=== PATIENT | female | born 1960 ===

== ENCOUNTER 2019-09-09 14:53 | Inpatient (IN) ==
[2019-09-09] MEDS ORDERED: PIPERACILL/TAZOBAC CONSULT ACTIVE PRN ×3 (15:08→21:03)
[2019-09-09] MEDS ORDERED: PIPERACILLIN/TAZOBACTAM 4.5 GM/120 ML BAG IV ONE (15:08)
[2019-09-09 15:11] LABS: Hematocrit (blood only) 48.1 % (37-47); Hemoglobin 15.9 g/dL (12.0-16.0); Mean Corpuscular Hemoglobin 29.5 pg (25-34); Mean Corpuscular Hgb Conc 33.1 g/dL (32-36); Mean Corpuscular Volume 89.2 fL (80-100); Mean Platelet Volume 11.2 fL (7.4-10.4); Platelet Count 322 K/uL (130-400); RDW Coefficient of Variation 15.7 % (11.5-14.5); RDW Standard Deviation 51.3 fL (36.4-46.3); Red Blood Count 5.39 M/uL (4.2-5.4); White Blood Count 6.34 K/uL (4.8-10.8)
[2019-09-09] MEDS ORDERED: SODIUM CHLORIDE 0.9% 1000ML 2,000 ML IV SCH (15:15)
--- NOTE | 2019-09-09 15:25 | XRay Report ---
SINGLE VIEW CHEST CLINICAL HISTORY: Atypical chest pain. FINDINGS: An AP, portable, upright chest radiograph is obtained. No prior studies are available for c omparison at the time of dictation. The cardiomediastinal silhouette is unremarkable. There are low lung volumes with bibasilar atelectasis. No airspace consolidation or large pleural effusion is ident ified. No pneumothorax is seen. The skeletal structures are osteopenic. The bony thorax is grossly in tact. Cholecystectomy clips are seen in the right upper quadrant. IMPRESSION: No active disease in the chest. ACT 112: Negative or not required by law. Electronically signed by: Rene Fernandez M.D. 09/09/2019 3:23 PM
[2019-09-09 15:27] LABS: Alanine Aminotransferase 41 U/L (12-78); Aspartate Aminotransferase 62 U/L (15-37); BUN Creatinine Ratio 10.2 (10-20); Blood Urea Nitrogen 32 mg/dl (7-18); Calcium 10.4 mg/dl (8.5-10.1); Carbon Dioxide 17 mmol/L (21-32); Chloride 108 mmol/L (98-107); Creatinine Clr Calc Pharmacy 22.2 ml/min; Est GFR (African American) 18.3; Est GFR (Non-African American) 15.8; Glucose 98 mg/dl (70-99); Lipase 68 U/L (73-393); Potassium 4.2 mmol/L (3.5-5.1); Sodium 142 mmol/L (136-145)
[2019-09-09] MEDS ORDERED: OPTIRAY 320 125ml IV PRN (15:30)
[2019-09-09 15:32] LABS: Albumin Globulin Ratio 0.8 (0.9-2); Alkaline Phosphatase 89 U/L (45-117); Bilirubin,Total 0.7 mg/dl (0.2-1); Creatine Kinase 608 U/L (26-192); Creatine Kinase MB 24.5 ng/ml (0.5-3.6); Globulin 3.8 gm/dl (2.5-4.0); Total Protein 6.8 gm/dl (6.4-8.2); Troponin I < 0.015 ng/ml (0-0.045)
[2019-09-09 15:34] LABS: INR 1.3 (0.9-1.1); Partial Thromboplastin Ratio 1.1; Partial Thromboplastin Time 29.1 Seconds (21.0-31.0)
[2019-09-09 15:37] LABS: D Dimer 10070 ug/L FEU (0-500)
--- NOTE | 2019-09-09 15:40 | Emergency Department Note ---
Entered by Neisha Saldaña acting as a scribe for Puneet David DO History of Present Illness General Chief complaint: Respiratory Problems Source: patient Mode of arrival: EMS History of Present Illness Provider complaint: Abdominal Pain Onset (ago): day(s) 2 Location: abdomen Radiation: back Relieved By: + none Exacerbated By: + movement Associated symptoms: + shortness of breath and + other (Slurred speech) The patient is a 59 year old female who presents to the Emergency Room with complaints of abdominal pain that began 2 days ago. The patient states that she is also experiencing pain in her back as well as her abdomen that is exacerbated by movement and not relieved by anything specific. The patient reports experiencing shortness of breath and EMS reports the patient experiencing slurred speech. The patient mentioned that she was diagnosed with Diverticulitis at [facility] yesterday. Home Medications Home Medications Medication Instructions Recorded Confirmed Type atorvastatin [Lipitor] 20 mg PO DAILY 09/09/19 09/09/19 History benazepril 5 mg PO DAILY 09/09/19 09/09/19 History diclofenac sodium [Voltaren] 2 g TOPICAL BID 09/09/19 09/09/19 History sulindac 150 mg PO BID 09/09/19 09/09/19 History Allergies Allergy/AdvReac Type Severity Reaction Status Date / Time Penicillins Allergy Unknown Verified 09/09/19 16:42 Past Med/Surg History Medical History Cardiac arrest Dyslipidemia Hypertension Obesity Perforated diverticulum Sepsis Smoker Surgical History No pertinent past surgical history Family History No pertinent family history in first degree relatives Social History Feels Safe at Home: Yes Smoking Status: Unknown if ever smoked Review of Systems See HPI for pertinent positives & negatives. and A total of 10 systems reviewed and were otherwise negative Physical Exam Vital Signs Vital Signs - 24 hr 09/09/19 15:03 09/09/19 15:05 09/09/19 15:10 Temperature 38 C H Temperature Source Rectal Pulse Rate 109 H 109 H 108 H Pulse Rate [Right Femoral] Pulse Rate from SpO2 Sensor Respiratory Rate 46 H 41 H 42 H Respiratory Effort / Characteristics Labored Respiratory Depth Deep Respiratory Pattern Rapid/Deep Blood Pressure Blood Pressure [Right Radial Artery] Blood Pressure Mean Blood Pressure Mean [Right Radial Artery] Pulse Oximetry 91 Oxygen Delivery Method Non-rebreather Oxygen Flow Rate 15 Fraction of Inspired Oxygen Sepsis Recent Fever Within 48 Hours No Sepsis Action Taken by Nursing No Action Required Arterial BP Systolic Arterial BP Diastolic Arterial BP Mean Arterial Pulse Rate 09/09/19 15:15 09/09/19 15:20 09/09/19 15:43 Temperature Temperature Source Pulse Rate 110 H 109 H 103 H Pulse Rate [Right Femoral] Pulse Rate from SpO2 Sensor 108 H Respiratory Rate 41 H 45 H 34 H Respiratory Effort / Characteristics Respiratory Depth Respiratory Pattern Blood Pressure Blood Pressure [Right Radial Artery] Blood Pressure Mean Blood Pressure Mean [Right Radial Artery] Pulse Oximetry 95 Oxygen Delivery Method Oxygen Flow Rate Fraction of Inspired Oxygen Sepsis Recent Fever Within 48 Hours Sepsis Action Taken by Nursing Arterial BP Systolic Arterial BP Diastolic Arterial BP Mean Arterial Pulse Rate 09/09/19 15:45 09/09/19 15:50 09/09/19 15:55 Temperature Temperature Source Pulse Rate 102 H 101 H 99 H Pulse Rate [Right Femoral] Pulse Rate from SpO2 Sensor Respiratory Rate 43 H 41 H 38 H Respiratory Effort / Characteristics Respiratory Depth Respiratory Pattern Blood Pressure Blood Pressure [Right Radial Artery] Blood Pressure Mean Blood Pressure Mean [Right Radial Artery] Pulse Oximetry Oxygen Delivery Method Oxygen Flow Rate Fraction of Inspired Oxygen Sepsis Recent Fever Within 48 Hours Sepsis Action Taken by Nursing Arterial BP Systolic Arterial BP Diastolic Arterial BP Mean Arterial Pulse Rate 09/09/19 16:00 09/09/19 16:05 09/09/19 16:10 Temperature Temperature Source Pulse Rate 101 H 102 H 101 H Pulse Rate [Right Femoral] Pulse Rate from SpO2 Sensor Respiratory Rate 33 H 36 H 37 H Respiratory Effort / Characteristics Respiratory Depth Respiratory Pattern Blood Pressure Blood Pressure [Right Radial Artery] Blood Pressure Mean Blood Pressure Mean [Right Radial Artery] Pulse Oximetry Oxygen Delivery Method Oxygen Flow Rate Fraction of Inspired Oxygen Sepsis Recent Fever Within 48 Hours Sepsis Action Taken by Nursing Arterial BP Systolic Arterial BP Diastolic Arterial BP Mean Arterial Pulse Rate 09/09/19 16:15 09/09/19 16:20 09/09/19 16:24 Temperature Temperature Source Pulse Rate 101 H 106 H 99 H Pulse Rate [Right Femoral] Pulse Rate from SpO2 Sensor 102 H 97 H 94 H Respiratory Rate 36 H 38 H 31 H Respiratory Effort / Characteristics Respiratory Depth Respiratory Pattern Blood Pressure Blood Pressure [Right Radial Artery] Blood Pressure Mean 71 Blood Pressure Mean [Right Radial Artery] Pulse Oximetry 84 L 98 77 L Oxygen Delivery Method Oxygen Flow Rate Fraction of Inspired Oxygen Sepsis Recent Fever Within 48 Hours Sepsis Action Taken by Nursing Arterial BP Systolic Arterial BP Diastolic Arterial BP Mean Arterial Pulse Rate 09/09/19 16:26 09/09/19 16:30 09/09/19 16:31 Temperature Temperature Source Pulse Rate 101 H 101 H 100 H Pulse Rate [Right Femoral] Pulse Rate from SpO2 Sensor 104 H Respiratory Rate 36 H 32 H 35 H Respiratory Effort / Characteristics Respiratory Depth Respiratory Pattern Blood Pressure 80/33 L Blood Pressure [Right Radial Artery] Blood Pressure Mean 40 Blood Pressure Mean [Right Radial Artery] Pulse Oximetry 89 L Oxygen Delivery Method Oxygen Flow Rate Fraction of Inspired Oxygen Sepsis Recent Fever Within 48 Hours Sepsis Action Taken by Nursing Arterial BP Systolic Arterial BP Diastolic Arterial BP Mean Arterial Pulse Rate 09/09/19 16:40 09/09/19 16:41 09/09/19 16:45 Temperature Temperature Source Pulse Rate 102 H 101 H 104 H Pulse Rate [Right Femoral] Pulse Rate from SpO2 Sensor 89 103 H 89 Respiratory Rate 33 H 35 H 36 H Respiratory Effort / Characteristics Respiratory Depth Respiratory Pattern Blood Pressure Blood Pressure [Right Radial Artery] Blood Pressure Mean 79 Blood Pressure Mean [Right Radial Artery] Pulse Oximetry 74 L 83 L 83 L Oxygen Delivery Method Oxygen Flow Rate Fraction of Inspired Oxygen Sepsis Recent Fever Within 48 Hours Sepsis Action Taken by Nursing Arterial BP Systolic Arterial BP Diastolic Arterial BP Mean Arterial Pulse Rate 09/09/19 16:50 09/09/19 16:52 09/09/19 16:55 Temperature Temperature Source Pulse Rate 105 H 83 55 L Pulse Rate [Right Femoral] Pulse Rate from SpO2 Sensor 105 H 100 H 124 H Respiratory Rate 36 H 15 14 Respiratory Effort / Characteristics Respiratory Depth Respiratory Pattern Blood Pressure Blood Pressure [Right Radial Artery] Blood Pressure Mean 32 Blood Pressure Mean [Right Radial Artery] Pulse Oximetry 88 L 72 L 75 L Oxygen Delivery Method Oxygen Flow Rate Fraction of Inspired Oxygen Sepsis Recent Fever Within 48 Hours Sepsis Action Taken by Nursing Arterial BP Systolic Arterial BP Diastolic Arterial BP Mean Arterial Pulse Rate 09/09/19 17:00 09/09/19 17:02 09/09/19 17:05 Temperature Temperature Source Pulse Rate 135 H 130 H 87 Pulse Rate [Right Femoral] Pulse Rate from SpO2 Sensor 123 H 135 H 128 H Respiratory Rate Respiratory Effort / Characteristics Respiratory Depth Respiratory Pattern Blood Pressure Blood Pressure [Right Radial Artery] Blood Pressure Mean 40 Blood Pressure Mean [Right Radial Artery] Pulse Oximetry 51 L 55 L 81 L Oxygen Delivery Method Oxygen Flow Rate Fraction of Inspired Oxygen Sepsis Recent Fever Within 48 Hours Sepsis Action Taken by Nursing Arterial BP Systolic Arterial BP Diastolic Arterial BP Mean Arterial Pulse Rate 09/09/19 17:10 09/09/19 17:11 09/09/19 17:15 Temperature Temperature Source Pulse Rate 123 H 122 H 121 H Pulse Rate [Right Femoral] Pulse Rate from SpO2 Sensor 117 H 118 H Respiratory Rate 22 24 16 Respiratory Effort / Characteristics Respiratory Depth Respiratory Pattern Blood Pressure 121/73 Blood Pressure [Right Radial Artery] Blood Pressure Mean 78 Blood Pressure Mean [Right Radial Artery] Pulse Oximetry 68 L 65 L Oxygen Delivery Method Oxygen Flow Rate Fraction of Inspired Oxygen Sepsis Recent Fever Within 48 Hours Sepsis Action Taken by Nursing Arterial BP Systolic Arterial BP Diastolic Arterial BP Mean Arterial Pulse Rate 09/09/19 17:19 09/09/19 17:21 09/09/19 17:22 Temperature Temperature Source Pulse Rate 116 H 130 H 116 H Pulse Rate [Right Femoral] Pulse Rate from SpO2 Sensor Respiratory Rate 16 16 16 Respiratory Effort / Characteristics Respiratory Depth Respiratory Pattern Blood Pressure 127/58 L 114/51 L Blood Pressure [Right Radial Artery] Blood Pressure Mean 76 76 Blood Pressure Mean [Right Radial Artery] Pulse Oximetry Oxygen Delivery Method Oxygen Flow Rate Fraction of Inspired Oxygen Sepsis Recent Fever Within 48 Hours Sepsis Action Taken by Nursing Arterial BP Systolic Arterial BP Diastolic Arterial BP Mean Arterial Pulse Rate 09/09/19 17:25 09/09/19 17:30 09/09/19 17:31 Temperature Temperature Source Pulse Rate 123 H 115 H 116 H Pulse Rate [Right Femoral] Pulse Rate from SpO2 Sensor Respiratory Rate 20 27 H 19 Respiratory Effort / Characteristics Respiratory Depth Respiratory Pattern Blood Pressure 107/91 Blood Pressure [Right Radial Artery] Blood Pressure Mean 98 Blood Pressure Mean [Right Radial Artery] Pulse Oximetry Oxygen Delivery Method Oxygen Flow Rate Fraction of Inspired Oxygen Sepsis Recent Fever Within 48 Hours Sepsis Action Taken by Nursing Arterial BP Systolic Arterial BP Diastolic Arterial BP Mean Arterial Pulse Rate 69 133 H 09/09/19 17:32 09/09/19 17:35 09/09/19 17:40 Temperature Temperature Source Pulse Rate 128 H 121 H Pulse Rate [Right Femoral] 127 H Pulse Rate from SpO2 Sensor Respiratory Rate 21 26 H 21 Respiratory Effort / Characteristics Respiratory Depth Respiratory Pattern Blood Pressure 102/69 Blood Pressure [Right Radial Artery] 72/59 L Blood Pressure Mean 80 Blood Pressure Mean [Right Radial Artery] 63 Pulse Oximetry Oxygen Delivery Method Oxygen Flow Rate Fraction of Inspired Oxygen Sepsis Recent Fever Within 48 Hours Sepsis Action Taken by Nursing Arterial BP Systolic 82 76 Arterial BP Diastolic 71 75 Arterial BP Mean 77 75 Arterial Pulse Rate 0 L 0 L 09/09/19 18:00 Temperature Temperature Source Pulse Rate 122 H Pulse Rate [Right Femoral] Pulse Rate from SpO2 Sensor Respiratory Rate 26 H Respiratory Effort / Characteristics Respiratory Depth Respiratory Pattern Blood Pressure Blood Pressure [Right Radial Artery] Blood Pressure Mean Blood Pressure Mean [Right Radial Artery] Pulse Oximetry Oxygen Delivery Method Oxygen Flow Rate Fraction of Inspired Oxygen 100 Sepsis Recent Fever Within 48 Hours Sepsis Action Taken by Nursing Arterial BP Systolic Arterial BP Diastolic Arterial BP Mean Arterial Pulse Rate CONSTITUTIONAL/VITAL SIGNS: Reviewed / noted above. GENERAL: Non-toxic in appearance. INTEGUMENTARY: Mottled. Cool hands and feet with some cyanosis to the toes. HEAD: Normocephalic. EYES: without scleral icterus or trauma. ENT/OROPHARYNX: clear and moist. LYMPHADENOPATHY/NECK: Is supple without lymphadenopathy or meningismus. RESPIRATORY: Tachypneic. CARDIOVASCULAR: Regular rate and rhythm. GI/ABDOMEN: Soft and diffusely tender. No organomegaly or pulsatile mass. No rebound or guarding. Normal bowel sounds. EXTREMITIES: No radial pulses are present. Poor capillary refill. BACK: No CVA tenderness. NEUROLOGICAL: Intact without focal deficits. PSYCHIATRIC: normal affect. MUSCULOSKELETAL: Normally developed with good muscle tone. Procedures Free Text Procedures Left subclavian central line placement: This was placed due to the poor IV access and the necessity to administer IV medications/IV fluids and to obtain blood work. The procedure was done under sterile technique. It was performed under sterile ultrasound guidance. The Seldinger technique was used. The triple lumen catheter was placed without difficulty on the initial attempt. Each port flushed well and gave blood. The triple lumen catheter was sutured in place. A sterile dressing was placed on the catheter site. The patient tolerated the procedure well. No complication. Endotracheal intubation: Reason: Acute respiratory failure RSI was performed using 28mg of IV etomidate and Rocuroneum 60mg. The patient was intubated successfully and without difficulty with a MAC 4 blade. The endotracheal tube was visualized passing through the cords. The patient did not have any hypoxia. There was no hypotension. There was no complication. End- tidal CO2 detection was present. Bilateral breath sounds are present with good tube humidification. No epigastric sounds. It was taped at 23 cm at the lip line. Size 7.0 tube. CPR: After intubation, the patient did become bradycardic and then asystolic. CPR was initiated for about a minute. A milligram of epinephrine IV was given as well as 2 A of bicarb. The patient regained pulses in a short period of time. ABG Interpretation ABG Interpretation 1: ABG Results: ABG reveals a pH of 7.12. PCO2 is 42 and PaO2 was 86. This represents adequate oxygenation with 15 L of oxygen. Adequate ventilation although an uncompensated metabolic acidosis is present likely due to sepsis. Interpretation: abnormal and metabolic acidosis Additional Comments: ABG #2 revealed a pH of 7.12. PCO2 was 54. PO2 was 98. The patient did have her ventilations increased from 16-20 prior to going to the OR. This represents a continued metabolic acidosis with inadequate ventilatory compensation with improved oxygenation after intubation. Course Course 1455: Past medical records reviewed. The patient was evaluated in room A01. A complete history and physical exam was performed. 1508: I ordered Zosyn IV for the patient. 1600: I placed a left subclavian central line. Radiologist called with report of intestinal perforation during the procedure. 1624: Norepinephrine drip was started. 1626: I spoke with Jonel Escobedo PA-C about the patient's case and he will call Dr. Belia Mcqueen who is in the hospital. 1645: Dr. Belia Mcqueen came down and evaluated the patient and decided she needed to be taken to the OR tonight. 1652: I intubated the patient and a NG tube was placed immediately after intubation. 1658: Patient became bradycardic and went into cardiac arrest. CPR was performed for about a minute and pulses were regained. 1705: Norepinephrine was increased. Vasopressins and Dobutamine were administered. Administered Medications Norepinephrine Bitartrate 8 mg (/ Dextrose) 508 mls @ 25.203 mls/hr IV .[id number] [facility]; Protocol Stop: 10/09/19 16:14 Last Titration: 09/09/19 16:44 Dose: 0.07 mcg/kg/min, 25.2 mls/hr Documented by: [id number] Admin: 09/09/19 16:24 Dose: 0.05 mcg/kg/min, 18 mls/hr Documented by: [id number] Cosigned by: [id number] Vasopressin 20 units/ Sodium (Chloride) 101 mls @ 12.12 mls/hr IV .Q8H20M [facility] Stop: 10/09/19 17:14 Last Admin: 09/09/19 17:35 Dose: 0.04 unit/min, 12.1 mls/hr Documented by: [id number] Cosigned by: [id number] Dobutamine HCl/Dextrose (Dobutamine / D5w) 500 mg in 250 mls @ 28.35 mls/hr IV .Q8H50M [facility]; Protocol Stop: 09/10/19 02:04 Last Admin: 09/09/19 17:36 Dose: 10 mcg/kg/min, 28.4 mls/hr Documented by: [id number] Cosigned by: [id number] Fentanyl Citrate (Fentanyl Drip) 1,250 mcg in 250 mls @ 10 mls/hr IV .Q24H [facility]; Protocol Stop: 09/23/19 17:28 Last Admin: 09/09/19 17:35 Dose: 50 mcg/hr, 10 mls/hr Documented by: [id number] Cosigned by: [id number] Ioversol (Optiray 320 125ml) 119 ml IV ONCE PRN PRN Reason: Interaction Checking Stop: 09/13/19 15:29 Last Admin: 09/09/19 15:31 Dose: 119 ml Documented by: [id number] Discontinued Medications Sodium Chloride (Nss 1000ml) 2,000 mls @ 999 mls/hr IV .Q2H1M [facility] Stop: 09/09/19 17:15 Last Admin: 09/09/19 16:11 Dose: 999 mls/hr Documented by: [id number] Piperacillin Sod/Tazobactam Sod (Zosyn) 4.5 gm in 120 mls @ 240 mls/hr IV NOW ONE Stop: 09/09/19 15:37 Last Infusion: 09/09/19 16:47 Dose: 0 mls/hr Documented by: [id number] Admin: 09/09/19 16:11 Dose: 240 mls/hr Documented by: [id number] Critical Care Time Critical Care Time: Yes Total Critical Care Time: 120 I have personally spent 120 minutes of critical care time in the direct management of this patient. This includes bedside care, interpretation of diagnostic studies, and testing, discussion with consultants, patient, and family members, and other required patient management activities. This 120 minutes is in excess of all separately billable procedures. Prolonged Care Time Prolonged Care Time: Yes Medical Decision Making Differential Diagnosis Differential diagnosis: Etiologies such as biliary colic, cholecystitis, hepatitis, perihepatitis, pancreatitis, cardiac disease, pancreatitis, gastritis, peptic ulcer disease, appendicitis, ovarian cyst, ovarian torsion, ectopic , pelvic inflammatory disease, cystitis, diverticulitis, mesenteric ischemia, inflammatory bowel disease, ileus, bowel obstruction, aortic pathology, shingles, as well as others were considered. Medical Records Attestation: I reviewed the patient's medical records. Home Medications Current Medication List: was personally reviewed by me Laboratory Data Attestation: I reviewed the patient's lab results. Result diagrams: 09/09/19 14:31 09/09/19 14:31 Lab Results 09/09/19 09/09/19 09/09/19 Range/Units 14:31 14:31 14:31 WBC 6.34 (4.8-10.8) K/uL RBC 5.39 (4.2-5.4) M/uL Hgb 15.9 (12.0-16.0) g/dL POC Hgb (12.0-16.0) g/dl Hct 48.1 H (37-47) % POC Hct (37-47) % MCV 89.2 (80-100) fL MCH 29.5 (25-34) pg MCHC 33.1 (32-36) g/dL RDW Std Deviation 51.3 H (36.4-46.3) fL RDW Coeff of Allan 15.7 H (11.5-14.5) % Plt Count 322 (130-400) K/uL MPV 11.2 H (7.4-10.4) fL Immature Gran % (Auto) 1.3 % Neut % (Auto) 76.2 % Lymph % (Auto) 18.0 % Gates % (Auto) 4.3 % Eos % (Auto) 0.0 % Baso % (Auto) 0.2 % Immature Gran # (Auto) 0.08 H (0.00-0.02) K/uL Neut # (Auto) 4.84 (1.4-6.5) K/uL Lymph # (Auto) 1.14 L (1.2-3.4) K/uL Gates # (Auto) 0.27 (0.11-0.59) K/uL Eos # (Auto) 0.00 (0-0.5) K/uL Baso # (Auto) 0.01 (0-0.2) K/uL PT 13.0 H (9.0-12.0) Seconds INR 1.3 H (0.9-1.1) APTT 29.1 (21.0-31.0) Seconds PTT Ratio 1.1 Fibrinogen (184-400) mg/dl Fibrin Degrad Products (<10) mcg/ml D-Dimer 41853 H* (0-500) ug/L FEU POC pH (7.35-7.45) POC pCO2 (35-46) mmHg POC pO2 (80-95) mmHg POC HCO3 (19-24) merrick/L POC Total CO2 (24-31) mmol/L POC Base Excess (-9-1.8) merrick/L ABG pH (7.35-7.45) ABG pCO2 (35-46) mmHg ABG pO2 (80-95) mmHg ABG HCO3 (19-24) mmol/L ABG O2 Saturation (90-95) % ABG Base Excess (-9-1.8) mEq/L Alec Test (Pos) Barometric Pressure mm/Hg Oxygen Given POC Sodium (135-144) mmol/L Sodium 142 (136-145) mmol/L POC Potassium (3.3-5.0) mmol/L Potassium 4.2 (3.5-5.1) mmol/L Chloride 108 H (98-107) mmol/L Carbon Dioxide 17 L (21-32) mmol/L Anion Gap 17.0 H (3-11) BUN 32 H (7-18) mg/dl Creatinine 3.12 H (0.6-1.2) mg/dl Est Cr Clr Drug Dosing 22.2 ml/min Est GFR ( Amer) 18.3 Est GFR (Non-Af Amer) 15.8 BUN/Creatinine Ratio 10.2 (10-20) Glucose 98 (70-99) mg/dl Lactate (0.4-2.0) mmol/L Calcium 10.4 H (8.5-10.1) mg/dl Total Bilirubin 0.7 (0.2-1) mg/dl AST 62 H (15-37) U/L ALT 41 (12-78) U/L Alkaline Phosphatase 89 (45-117) U/L Total Creatine Kinase 608 H (26-192) U/L CK-MB (CK-2) 24.5 H (0.5-3.6) ng/ml CK/CKMB % Calc 4.0 H (0-3.0) Troponin I < 0.015 (0-0.045) ng/ml Total Protein 6.8 (6.4-8.2) gm/dl Albumin 3.0 L (3.4-5.0) gm/dl Globulin 3.8 (2.5-4.0) gm/dl Albumin/Globulin Ratio 0.8 L (0.9-2) Lipase 68 L (73-393) U/L Blood Type Antibody Screen 09/09/19 09/09/19 09/09/19 Range/Units 15:49 15:49 16:19 WBC (4.8-10.8) K/uL RBC (4.2-5.4) M/uL Hgb (12.0-16.0) g/dL POC Hgb (12.0-16.0) g/dl Hct (37-47) % POC Hct (37-47) % MCV (80-100) fL MCH (25-34) pg MCHC (32-36) g/dL RDW Std Deviation (36.4-46.3) fL RDW Coeff of Allan (11.5-14.5) % Plt Count (130-400) K/uL MPV (7.4-10.4) fL Immature Gran % (Auto) % Neut % (Auto) % Lymph % (Auto) % Gates % (Auto) % Eos % (Auto) % Baso % (Auto) % Immature Gran # (Auto) (0.00-0.02) K/uL Neut # (Auto) (1.4-6.5) K/uL Lymph # (Auto) (1.2-3.4) K/uL Gates # (Auto) (0.11-0.59) K/uL Eos # (Auto) (0-0.5) K/uL Baso # (Auto) (0-0.2) K/uL PT (9.0-12.0) Seconds INR (0.9-1.1) APTT (21.0-31.0) Seconds PTT Ratio Fibrinogen (184-400) mg/dl Fibrin Degrad Products (<10) mcg/ml D-Dimer (0-500) ug/L FEU POC pH (7.35-7.45) POC pCO2 (35-46) mmHg POC pO2 (80-95) mmHg POC HCO3 (19-24) merrick/L POC Total CO2 (24-31) mmol/L POC Base Excess (-9-1.8) merrick/L ABG pH 7.12 L* (7.35-7.45) ABG pCO2 42 (35-46) mmHg ABG pO2 86 (80-95) mmHg ABG HCO3 13 L (19-24) mmol/L ABG O2 Saturation 95.1 H (90-95) % ABG Base Excess -15.3 L (-9-1.8) mEq/L Alec Test (Pos) Barometric Pressure 726.4 mm/Hg Oxygen Given 15L O2 NRB POC Sodium (135-144) mmol/L Sodium (136-145) mmol/L POC Potassium (3.3-5.0) mmol/L Potassium (3.5-5.1) mmol/L Chloride (98-107) mmol/L Carbon Dioxide (21-32) mmol/L Anion Gap (3-11) BUN (7-18) mg/dl Creatinine (0.6-1.2) mg/dl Est Cr Clr Drug Dosing ml/min Est GFR ( Amer) Est GFR (Non-Af Amer) BUN/Creatinine Ratio (10-20) Glucose (70-99) mg/dl Lactate 7.4 H* (0.4-2.0) mmol/L Calcium (8.5-10.1) mg/dl Total Bilirubin (0.2-1) mg/dl AST (15-37) U/L ALT (12-78) U/L Alkaline Phosphatase (45-117) U/L Total Creatine Kinase (26-192) U/L CK-MB (CK-2) (0.5-3.6) ng/ml CK/CKMB % Calc (0-3.0) Troponin I (0-0.045) ng/ml Total Protein (6.4-8.2) gm/dl Albumin (3.4-5.0) gm/dl Globulin (2.5-4.0) gm/dl Albumin/Globulin Ratio (0.9-2) Lipase (73-393) U/L Blood Type A Negative Antibody Screen NEGATIVE 09/09/19 09/09/19 09/09/19 Range/Units 16:36 17:29 17:45 WBC (4.8-10.8) K/uL RBC (4.2-5.4) M/uL Hgb (12.0-16.0) g/dL POC Hgb 10.5 L (12.0-16.0) g/dl Hct (37-47) % POC Hct 31 L (37-47) % MCV (80-100) fL MCH (25-34) pg MCHC (32-36) g/dL RDW Std Deviation (36.4-46.3) fL RDW Coeff of Allan (11.5-14.5) % Plt Count (130-400) K/uL MPV (7.4-10.4) fL Immature Gran % (Auto) % Neut % (Auto) % Lymph % (Auto) % Gates % (Auto) % Eos % (Auto) % Baso % (Auto) % Immature Gran # (Auto) (0.00-0.02) K/uL Neut # (Auto) (1.4-6.5) K/uL Lymph # (Auto) (1.2-3.4) K/uL Gates # (Auto) (0.11-0.59) K/uL Eos # (Auto) (0-0.5) K/uL Baso # (Auto) (0-0.2) K/uL PT 14.4 H (9.0-12.0) Seconds INR 1.4 H (0.9-1.1) APTT 35.3 H (21.0-31.0) Seconds PTT Ratio 1.3 Fibrinogen 438 H (184-400) mg/dl Fibrin Degrad Products (<10) mcg/ml D-Dimer (0-500) ug/L FEU POC pH 7.12 L* (7.35-7.45) POC pCO2 54 H (35-46) mmHg POC pO2 98 H (80-95) mmHg POC HCO3 18 L (19-24) merrick/L POC Total CO2 19 L (24-31) mmol/L POC Base Excess -12.0 L (-9-1.8) merrick/L ABG pH (7.35-7.45) ABG pCO2 (35-46) mmHg ABG pO2 (80-95) mmHg ABG HCO3 (19-24) mmol/L ABG O2 Saturation (90-95) % ABG Base Excess (-9-1.8) mEq/L Alec Test (Pos) Barometric Pressure mm/Hg Oxygen Given POC Sodium 144 (135-144) mmol/L Sodium (136-145) mmol/L POC Potassium 3.2 L (3.3-5.0) mmol/L Potassium (3.5-5.1) mmol/L Chloride (98-107) mmol/L Carbon Dioxide (21-32) mmol/L Anion Gap (3-11) BUN (7-18) mg/dl Creatinine (0.6-1.2) mg/dl Est Cr Clr Drug Dosing ml/min Est GFR ( Amer) Est GFR (Non-Af Amer) BUN/Creatinine Ratio (10-20) Glucose (70-99) mg/dl Lactate 5.4 H* (0.4-2.0) mmol/L Calcium (8.5-10.1) mg/dl Total Bilirubin (0.2-1) mg/dl AST (15-37) U/L ALT (12-78) U/L Alkaline Phosphatase (45-117) U/L Total Creatine Kinase (26-192) U/L CK-MB (CK-2) (0.5-3.6) ng/ml CK/CKMB % Calc (0-3.0) Troponin I (0-0.045) ng/ml Total Protein (6.4-8.2) gm/dl Albumin (3.4-5.0) gm/dl Globulin (2.5-4.0) gm/dl Albumin/Globulin Ratio (0.9-2) Lipase (73-393) U/L Blood Type Antibody Screen 09/09/19 Range/Units 17:45 WBC (4.8-10.8) K/uL RBC (4.2-5.4) M/uL Hgb (12.0-16.0) g/dL POC Hgb (12.0-16.0) g/dl Hct (37-47) % POC Hct (37-47) % MCV (80-100) fL MCH (25-34) pg MCHC (32-36) g/dL RDW Std Deviation (36.4-46.3) fL RDW Coeff of Allan (11.5-14.5) % Plt Count (130-400) K/uL MPV (7.4-10.4) fL Immature Gran % (Auto) % Neut % (Auto) % Lymph % (Auto) % Gates % (Auto) % Eos % (Auto) % Baso % (Auto) % Immature Gran # (Auto) (0.00-0.02) K/uL Neut # (Auto) (1.4-6.5) K/uL Lymph # (Auto) (1.2-3.4) K/uL Gates # (Auto) (0.11-0.59) K/uL Eos # (Auto) (0-0.5) K/uL Baso # (Auto) (0-0.2) K/uL PT (9.0-12.0) Seconds INR (0.9-1.1) APTT (21.0-31.0) Seconds PTT Ratio Fibrinogen (184-400) mg/dl Fibrin Degrad Products >40 H (<10) mcg/ml D-Dimer (0-500) ug/L FEU POC pH (7.35-7.45) POC pCO2 (35-46) mmHg POC pO2 (80-95) mmHg POC HCO3 (19-24) merrick/L POC Total CO2 (24-31) mmol/L POC Base Excess (-9-1.8) merrick/L ABG pH (7.35-7.45) ABG pCO2 (35-46) mmHg ABG pO2 (80-95) mmHg ABG HCO3 (19-24) mmol/L ABG O2 Saturation (90-95) % ABG Base Excess (-9-1.8) mEq/L Alec Test (Pos) Barometric Pressure mm/Hg Oxygen Given POC Sodium (135-144) mmol/L Sodium (136-145) mmol/L POC Potassium (3.3-5.0) mmol/L Potassium (3.5-5.1) mmol/L Chloride (98-107) mmol/L Carbon Dioxide (21-32) mmol/L Anion Gap (3-11) BUN (7-18) mg/dl Creatinine (0.6-1.2) mg/dl Est Cr Clr Drug Dosing ml/min Est GFR ( Amer) Est GFR (Non-Af Amer) BUN/Creatinine Ratio (10-20) Glucose (70-99) mg/dl Lactate (0.4-2.0) mmol/L Calcium (8.5-10.1) mg/dl Total Bilirubin (0.2-1) mg/dl AST (15-37) U/L ALT (12-78) U/L Alkaline Phosphatase (45-117) U/L Total Creatine Kinase (26-192) U/L CK-MB (CK-2) (0.5-3.6) ng/ml CK/CKMB % Calc (0-3.0) Troponin I (0-0.045) ng/ml Total Protein (6.4-8.2) gm/dl Albumin (3.4-5.0) gm/dl Globulin (2.5-4.0) gm/dl Albumin/Globulin Ratio (0.9-2) Lipase (73-393) U/L Blood Type Antibody Screen Imaging Data Radiologist's Impression: Radiology results as stated below per my review and the radiologist's interpretation: SINGLE VIEW CHEST CLINICAL HISTORY: Atypical chest pain. FINDINGS: An AP, portable, upright chest radiograph is obtained. No prior studies are available for comparison at the time of dictation. The cardiomediastinal silhouette is unremarkable. There are low lung volumes with bibasilar atelectasis. No airspace consolidation or large pleural effusion is identified. No pneumothorax is seen. The skeletal structures are osteopenic. The bony thorax is grossly intact. Cholecystectomy clips are seen in the right upper quadrant. IMPRESSION: No active disease in the chest. ACT 112: Negative or not required by law. Electronically signed by: Rene Fernandez M.D. 09/09/2019 3:[address] ANGIOGRAPHY OF THE CHEST DISSECTION PROTOCOL CLINICAL HISTORY: Hypotension. COMPARISON STUDY: Chest radiograph September 09, 2019 TECHNIQUE: Before and following the IV administration of 119 mL of Optiray-320, helical axial images of the chest were obtained. Maximal intensity projections and sagittal and coronal reformats were viewed on an independent 3D workstation. IV contrast was administered without complication. Automated exposure control was utilized for the study. A dose lowering technique was utilized adhering to the principles of ALARA. CT DOSE: 2209.46 mGy.cm FINDINGS: Caliber of the thoracic aorta is normal. There is no thoracic aortic dissection or intramural hematoma. Note is made of several small left-sided pulmonary emboli, including an embolus within the distal left pulmonary artery as well as emboli within the lingular and left lower lobe branches. The heart is moderately enlarged. There is moderate distention of the esophagus which is fluid-filled. Stomach is distended. A small right pleural effusion is noted. Right middle lobe and right lower lobe airspace opacity is noted. There is no left pleural effusion. There is no pneumothorax. Moderate perihepatic ascites is noted with pneumoperitoneum. IMPRESSION: 1. No thoracic aortic dissection. 2. Several small left-sided pulmonary emboli, as described above. 3. Pneumoperitoneum which is better depicted on the CT of the abdomen and pelvis. Please see that report for further description. 4. Small right pleural effusion. Right middle lobe and right lower lobe airspace opacity which favors atelectasis although aspiration could appear similar. 5. Moderate distended fluid-filled esophagus and stomach. Findings discussed with Dr. Burton at time of dictation. ACT 112: Negative or not required by law. Electronically signed by: Alon Tan M.D. 09/09/2019 4:[address] angio abd aorta runof w con CLINICAL HISTORY: Abdominal pain. Hypotension. COMPARISON STUDY: No previous studies for comparison. TECHNIQUE: Helical axial images of the abdomen and pelvis and both lower extreme is were obtained during arterial phase following intravenous injection of 119 cc Optiray 320 IV. Sagittal and coronal reconstructed reviewed as well as maximal intensity projections on an independent 3-D workstation. Automated exposure control was utilized for the study. A dose lowering technique was utilized adhering to the principles of ALARA. FINDINGS: Please note that the chest will be reported separately. Moderate pneumoperitoneum is present. There is moderate perihepatic ascites. The source is likely the sigmoid colon shown on axial image 388 of 1395. There is apparent disruption of the sigmoid colon wall with gas within the wall and adjacent soft tissues. Extraluminal stool is suspected. There may be extraluminal stool along the superior aspect the bladder as well. Mesenteric infiltration is noted. Evalu ation of the abdomen and pelvis is suboptimal on this arterial phase study. The liver, spleen and pancreas are unremarkable. Increased enhancement of bilateral adrenal glands is noted. Multiple hypoenhancing foci within the kidneys are noted. No convincing evidence for a bowel obstruction. The appendix is normal. Mild small bowel dilatation is noted without transition point. There is severe osteoarthritis of the left hip. The caliber of the abdominal aorta is normal. Major branch vessels are patent. There is mild atherosclerotic plaque within the major vessels of the abdomen and pelvis and lower extremity is without significant stenosis. The bilateral common femoral, superficial femoral and popliteal arteries are patent. Evaluation of the calf vessels is essentially nondiagnostic as the scanner outran the bolus. IMPRESSION: 1. Moderate pneumoperitoneum consistent with a perforated hollow viscus, likely the sigmoid colon with apparent disruption of the sigmoid colon wall with extral uminal stool adjacent to the site of perforation and within the pelvis. Moderate ascites. Mesenteric infiltration. Surgical consultation is recommended. Findings discussed with Dr. Burton at time of dictation. 2. Numerous hypoenhancing foci within the kidneys which could be due to hypoperfusion or renal infarcts. Hyperenhancement of the bilateral adrenal glands and slit-like IVC suggest hypoperfusion syndrome. 3. Mild atherosclerotic plaque. No significant stenosis. No dissection. Essentially nondiagnostic evaluation of the bilateral calf vessels as the scanner outran the bolus. 4. Mild small bowel dilatation which suggests an ileus. Fluid-filled distended stomach and esophagus. ACT 112: Negative or not required by law. Electronically signed by: Alon Tan M.D. 09/09/2019 4:18 PM REPEAT: XR chest 1V portable CLINICAL HISTORY: Chest x-ray status post central venous catheter placement. COMPARISON STUDY: September 09, 2019 FINDINGS: The heart is enlarged. There is a left subclavian central venous catheter. The tip projects over the superior vena cava at the azygos level. No pneumothorax is visualized. There is radiographic evidence of mild pulmonary vascular congestion/fluid overload. There are mild basilar atelectatic changes.[ IMPRESSION: 1. Interval placement of a left subclavian central venous catheter. The tip projects at the superior vena cava and azygos level 2. No evidence of pneumothorax 3. Radiographic evidence of mild congestive failure/fluid overload. ACT 112: Negative or not required by law. Electronically signed by: Fortino Glass M.D. 09/09/2019 4:22 PM Blood Pressure Blood Pressure Findings: Normal blood pressure Blood Pressure Disposition: further management by hospitalist KIRK Oliver This is a 59-year-old female who presents to the ED with a chief complaint of abdominal pain and hypotension. The patient was seen yesterday at [facility] emergency department. At that time she was diagnosed with constipation and sigmoiditis and discharged on Cipro and Flagyl. Her vital signs there revealed a temperature of 35.4 tympanic, heart rate of 65 respiratory rate of 16 and a blood pressure of 152/76. The patient had complained of abdominal pain of the lower abdomen for a period of 5 hours. It was intermittent sharp and stabbing yesterday. She also had some nausea and one episode of vomiting yesterday. She did report to them some intermittent constipation. A CT scan of the abdomen pelvis yesterday with contrast revealed marked constipation especially in the re ctosigmoid colon and right colon. There was a short segment of pericolonic inflammation at the sigmoid level. No perforation or free air was seen. The patient's BUN yesterday was 11 and creatinine was 0.77. The patient's liver function tests yesterday were unremarkable. Her potassium was 4.5. White blood cell count yesterday was 15.94. Hemoglobin was 12.8. Platelet count was 276. Urine did not show infection.The patient CBC today reveals a white blood cell count of 6.34. Hemoglobin is 15.9. D-dimer is over 10,000. BUN is 32 and creatinine is 3.12. Total CK is 608. Troponin is negative. Lipase is normal. Lactic acid initially was 7.4. Second lactic acid was 5.4. Troponin was negative. Initial ABG analysis as noted above. Shows a predominant metabolic acidosis with adequate oxygenation on [address] scan of the chest, abdomen pelvis reveals findings suggesting a perforated viscus likely related to her sigmoid region. She had the diagnosis of sigmoid diverticulitis yesterday. There possibly some small PEs noted on the CT angiogram of the chest as well. Because of the fever and likely septic shock, the patient was initially given IV Zosyn. Was also given a 2 L bolus of normal saline IV. After the patient came back from CT scan, there was some difficulty with access and due to the patient's persistent hypotensive despite 2 L initial bolus of IV fluids, a left subclavian central line triple-lumen catheter was placed. After this the patient was started on norepinephrine and given a third L of normal saline. I did speak with Willy Klein from general surgery who is going to contact Dr. Gonzalez. I did have Dr. Gonzalez paged and he was looking at the CT scan and came to the emergency department to evaluate the patient. The patient was able to talk to Dr. Gonzalez prior to endotracheal intubation as the ABG came back showing a significant metabolic acidosis and marginal oxygenation despite 15 L of facemask oxygen. The patient was intubated using IV rocuronium and etomidate IV. After intubation and while the glide scope was still in place, an NG tube was placed by Dr. Marin who is in the ED at this point. The endotracheal tube and NG tube were placed with direct visualization of placement using the glide scope. The patient did appear to have a small amount of aspiration from the gastric contents during the procedure. There was a subsequent episode of bradycardia and then asystole that was felt to be related to inadequate oxygenation/porfirio tilation following the intubation and nasogastric tube placement. A CODE BLUE was called. The patient was given an IV dose of epinephrine. She was also given a couple of amps of IV bicarb. CPR was performed for a minute or 2 and the patient regained pulses and a narrow complex rhythm. The patient had an increase in the norepinephrine she was getting after this. She also was started on vasopressin and IV dobutamine. The patient did have improvement of her blood pressure following this. A bedside echo was performed by Dr. Mayberry and there was no significant abnormalities. Arterial line was placed by Dr. Marin in the ED. The patient was taken to the operating room by anesthesia who was also present in the emergency room and Dr. Gonzalez who was present. Dr. Gonzalez did speak with the family on the phone as they were not present. Impression & Plan Perforated abdominal viscus, Septic shock, Respiratory failure, Metabolic acidosis, Acute renal failure, Cardiac arrest, Sepsis, Pulmonary embolism Discharge Plan Visit Data Chief Complaint: Respiratory Problems ED Provider: Puneet David Discharge Problem: Perforated abdominal viscus, Septic shock, Respiratory failure, Metabolic acidosis, Acute renal failure, Cardiac arrest, Sepsis, Pulmonary embolism Forms Stand Alone Forms: [facility] Prescriptions Prescriptions: No Action atorvastatin [Lipitor] 20 mg tablet 20 mg PO DAILY RF: 0 benazepril 5 mg tablet 5 mg PO DAILY RF: 0 sulindac 150 mg tablet 150 mg PO BID RF: 0 diclofenac sodium [Voltaren] 1 % gel 2 g TOPICAL BID RF: 0 Referrals Referrals: PCP,NO [Primary Care Provider] - Discharge Problem: Respiratory failure Qualifiers: Chronicity: acute Respiratory failure complication: hypoxia Qualified Code(s): J96.01 - Acute respiratory failure with hypoxia Acute renal failure Qualifiers: Acute renal failure type: unspecified Qualified Code(s): N17.9 - Acute kidney failure, unspecified The scribe's documentation has been prepared under my direction and personally reviewed by me in its entirety. I confirm that the note above accurately reflects all work, treatment, procedures, and medical decision making performed by me.
[2019-09-09 15:53] LABS: Basophils # (auto) 0.01 K/uL (0-0.2); Basophils % (auto) 0.2 %; Immature Granulocytes # (auto) 0.08 K/uL (0.00-0.02); Immature Granulocytes % (auto) 1.3 %; Lymphocytes # (auto) 1.14 K/uL (1.2-3.4); Monocytes # (auto) 0.27 K/uL (0.11-0.59); Monocytes % (auto) 4.3 %; Neutrophils # (auto) 4.84 K/uL (1.4-6.5); Neutrophils % (auto) 76.2 %
--- NOTE | 2019-09-09 16:06 | CT Scan Report ---
CT ANGIOGRAPHY OF THE CHEST DISSECTION PROTOCOL CLINICAL HISTORY: Hypotension. COMPARISON STUDY: Chest radiograph September 09, 2019 TECHNIQUE: Before and following the IV administration of 119 mL of Optiray-320, helical axial images of the chest were obtained. Maximal intensity projections and sagittal and coronal reformats were vi ewed on an independent 3D workstation. IV contrast was administered without complication. Automated exposure control was utilized for the study. A dose lowering technique was utilized adhering to the principles of ALARA. CT DOSE: 2209.46 mGy.cm FINDINGS: Caliber of the thoracic aorta is normal. There is no thoracic aortic dissection or intramu ral hematoma. Note is made of several small left-sided pulmonary emboli, including an embolus within the distal left pulmonary artery as well as emboli within the lingular and left lower lobe branches. The heart is moderately enlarged. There is moderate distention of the esophagus which is fluid-filled . Stomach is distended. A small right pleural effusion is noted. Right middle lobe and right lower lo be airspace opacity is noted. There is no left pleural effusion. There is no pneumothorax. Moderate p erihepatic ascites is noted with pneumoperitoneum. IMPRESSION: 1. No thoracic aortic dissection. 2. Several small left-sided pulmonary emboli, as described above. 3. Pneumoperitoneum which is better depicted on the CT of the abdomen and pelvis. Please see that rep ort for further description. 4. Small right pleural effusion. Right middle lobe and right lower lobe airspace opacity which favors atelectasis although aspiration could appear similar. 5. Moderate distended fluid-filled esophagus and stomach. Findings discussed with Dr. Burton at time of dictation. ACT 112: Negative or not required by law. Electronically signed by: Alon Tan M.D. 09/09/2019 4:05 PM
[2019-09-09] MEDS ORDERED: NOREPINEPHRINE BIT INJ 8 MG in DEXTROSE 5% 500 ML IV SCH (16:15)
--- NOTE | 2019-09-09 16:19 | CT Scan Report ---
CT angio abd aorta runof w con CLINICAL HISTORY: Abdominal pain. Hypotension. COMPARISON STUDY: No previous studies for comparison. TECHNIQUE: Helical axial images of the abdomen and pelvis and both lower extreme is were obtained dur ing arterial phase following intravenous injection of 119 cc Optiray 320 IV. Sagittal and coronal rec onstructed reviewed as well as maximal intensity projections on an independent 3-D workstation. Autom ated exposure control was utilized for the study. A dose lowering technique was utilized adhering to the principles of ALARA. FINDINGS: Please note that the chest will be reported separately. Moderate pneumoperitoneum is presen t. There is moderate perihepatic ascites. The source is likely the sigmoid colon shown on axial image 388 of 1395. There is apparent disruption of the sigmoid colon wall with gas within the wall and adj acent soft tissues. Extraluminal stool is suspected. There may be extraluminal stool along the superi or aspect the bladder as well. Mesenteric infiltration is noted. Evaluation of the abdomen and pelvis is suboptimal on this arterial phase study. The liver, spleen and pancreas are unremarkable. Increas ed enhancement of bilateral adrenal glands is noted. Multiple hypoenhancing foci within the kidneys a re noted. No convincing evidence for a bowel obstruction. The appendix is normal. Mild small bowel di latation is noted without transition point. There is severe osteoarthritis of the left hip. The caliber of the abdominal aorta is normal. Major branch vessels are patent. There is mild atherosc lerotic plaque within the major vessels of the abdomen and pelvis and lower extremity is without sign ificant stenosis. The bilateral common femoral, superficial femoral and popliteal arteries are patent . Evaluation of the calf vessels is essentially nondiagnostic as the scanner outran the bolus. IMPRESSION: 1. Moderate pneumoperitoneum consistent with a perforated hollow viscus, likely the sigmoid colon wit h apparent disruption of the sigmoid colon wall with extraluminal stool adjacent to the site of perfo ration and within the pelvis. Moderate ascites. Mesenteric infiltration. Surgical consultation is rec ommended. Findings discussed with Dr. Burton at time of dictation. 2. Numerous hypoenhancing foci within the kidneys which could be due to hypoperfusion or renal infarc ts. Hyperenhancement of the bilateral adrenal glands and slit-like IVC suggest hypoperfusion syndrome . 3. Mild atherosclerotic plaque. No significant stenosis. No dissection. Essentially nondiagnostic ronak luation of the bilateral calf vessels as the scanner outran the bolus. 4. Mild small bowel dilatation which suggests an ileus. Fluid-filled distended stomach and esophagus. ACT 112: Negative or not required by law. Electronically signed by: Alon Tan M.D. 09/09/2019 4:18 PM
--- NOTE | 2019-09-09 16:24 | XRay Report ---
XR chest 1V portable CLINICAL HISTORY: Chest x-ray status post central venous catheter placement. COMPARISON STUDY: September 09, 2019 FINDINGS: The heart is enlarged. There is a left subclavian central venous catheter. The tip projects over the superior vena cava at the azygos level. No pneumothorax is visualized. There is radiographi c evidence of mild pulmonary vascular congestion/fluid overload. There are mild basilar atelectatic c hanges.[ IMPRESSION: 1. Interval placement of a left subclavian central venous catheter. The tip projects at the superior vena cava and azygos level 2. No evidence of pneumothorax 3. Radiographic evidence of mild congestive failure/fluid overload. ACT 112: Negative or not required by law. Electronically signed by: Fortino Glass M.D. 09/09/2019 4:22 PM
[2019-09-09 16:32] LABS: Base Excess ABG -15.3 mEq/L (-9-1.8); HCO3 ABG 13 mmol/L (19-24); Oxygen Saturation ABG 95.1 % (90-95); PCO2 ABG 42 mmHg (35-46); PO2 ABG 86 mmHg (80-95)
[2019-09-09 16:36] LABS: pH ABG 7.12 (7.35-7.45)
[2019-09-09] MEDS ORDERED: RAPID SEQUENCE INDUCTION BAG ONE (16:41)
[2019-09-09] MEDS ORDERED: DOBUTamine 500MG / 250ML D5W IV ONE (16:59)
[2019-09-09] MEDS ORDERED: SODIUM BICARB 8.4% INJ 50 MEQ/50 ML SYR IV ONE (16:59)
[2019-09-09] MEDS ORDERED: ROCURONIUM BROMIDE 10 MG/ML 5 ML VIAL IV ONE (16:59)
[2019-09-09] MEDS ORDERED: CALCIUM CHLORIDE 10% 10 ML SYR IV ONE (16:59)
[2019-09-09] MEDS ORDERED: ETOMIDATE 2 MG/ML 20 ML VIAL IV ONE (16:59)
--- NOTE | 2019-09-09 17:03 | Anesthesiology Consultation ---
Date of Service September 09, 2019 History Surgery Operation Date: 09/09/19 12:15 Proposed Procedures p Bowel Resection - Chadwick Gonzalez MD, FACS Height/Weight Height: 5 ft 4 in Weight: 94.5 kg Allergies Allergy/AdvReac Type Severity Reaction Status Date / Time Penicillins Allergy Unknown Verified 09/09/19 16:42 Medications Home Medications Medication Instructions Recorded Confirmed Last Taken atorvastatin [Lipitor] 20 mg PO DAILY 09/09/19 09/09/19 Unknown benazepril 5 mg PO DAILY 09/09/19 09/09/19 Unknown diclofenac sodium [Voltaren] 2 g TOPICAL BID 09/09/19 09/09/19 Unknown sulindac 150 mg PO BID 09/09/19 09/09/19 Unknown Active Medications Generic Name Dose Route Start Last Admin Trade Name Freq PRN Reason Stop Dose Admin Sodium Chloride 2,000 mls @ 999 mls/hr 09/09/19 15:15 09/09/19 16:11 Nss 1000ml IV 09/09/19 17:15 999 mls/hr .Q2H1M MEHUL Administration Norepinephrine Bitartrate 8 mg 508 mls @ 18.002 mls/hr 09/09/19 16:15 09/09/19 16:44 / Dextrose IV 10/09/19 16:14 0.07 mcg/kg/min .Q24H MEHUL 25.2 mls/hr Titration Protocol 0.05 MCG/KG/MIN Ioversol 119 ml 09/09/19 15:30 09/09/19 15:31 Optiray 320 125ml IV 09/13/19 15:29 119 ml ONCE PRN Administration Interaction Checking Past Medical History Medical History (Updated 09/09/19 @ 17:02 by Justin Canela MD) Cardiac arrest No pertinent past medical history Past Family History Family History Other No pertinent family history in first degree relatives Past Surgical History Surgical History No pertinent past surgical history Social History Smoking Status: Unknown if ever smoked Physical Exam Vital Signs Last Vital Signs Temp 38 C H 09/09/19 15:03 Pulse 101 H 09/09/19 16:41 Resp 35 H 09/09/19 16:41 BP 80/33 L 09/09/19 16:31 Pulse Ox 83 L 09/09/19 16:41 Testing Laboratory Results 09/09/19 14:31 09/09/19 14:31 PT 13.0 Seconds (9.0-12.0) H 09/09/19 14:31 INR 1.3 (0.9-1.1) H 09/09/19 14:31 APTT 29.1 Seconds (21.0-31.0) 09/09/19 14:31 Blood Type A Negative 09/09/19 15:49 Antibody Screen NEGATIVE 09/09/19 15:49
[2019-09-09] MEDS ORDERED: VASOPRESSIN 20 UNITS in 0.9 % SODIUM CHLORIDE 100 ML IV STA (17:04)
--- NOTE | 2019-09-09 17:10 | Communication Note ---
Date of Service: September 09, 2019 I was called by Dr. Gonzalez about a patient with likely ruptured diverticulum in possible sepsis. Upon my arrival to the ICU, the patient had been intubated and an NG tube was being placed. Pulse oximetry had a poor tracing. No blood pressure was noted. The patient was on a norepinephrine gtt and had received [address] Priest was supervising the patient's care. Soon after my arrival the patient's HR dropped to zero and chest compressions were started. A code blue was called. Dr. Priest is managing the patient.
[2019-09-09] MEDS ORDERED: DOBUTamine / D5W 500 MG/250 ML BAG IV STA (17:15)
--- NOTE | 2019-09-09 17:19 | Anesthesiology Consultation ---
Date of Service September 09, 2019 The patient was seen yesterday for diverticulitis at [facility]. The patient was brought in by ambulance complaining of SOB. She was intubated in the ICU and had a brief cardiac arrest after intubation. After chest co mpressions and epinephrine her circulation returned. Dr. Marin has been managing her care in the ER. The patient is currently ventilated at [id number], peep 5, 100% FiO2. She is on dobutamine 5 mcg/kg/min, norephiphrine 0.2 mcg/kg/min and vasopression 0.04 unit/hr. The patient has a L radial arterial line, L subclavian TLC, and two 18 gauge IVs. I spoke to the patient's daughter over the phone and was given PMH of HTN and smoking. Dr. Mayberry performed an echocardiogram in the ER and found EF to be 35-40%. EKG showed sinus tachycardia with sinus arrhythmia. The patient is emergently going to the OR and was intubated so no consent was obtained. Assessment & Plan (1) Encounter for pre-operative examination: Chart Review Chart Review: Acceptable Risk for Surgery (surgery is an emergency) and Patient NOT seen in Pre Admission Testing The patient had a brief cardiac arrest in the ER. She was revived with chest compressions and epinephrine. Dr. Marin has placed ASA [id number] Proposed Anesthesia Anesthesia Type: General Anesthesia Line Insertion: Arterial line and Central Venous Catheter Risk / Benefits Reviewed With: PT / POA / Parent / Guardian (discussed anesthesia/surgery with patient's daughter), Accepts Plan (emergency consent implied) and Informed Consent Obtained (emergency consent implied) History Surgery Operation Date: 09/09/19 12:15 Proposed Procedures p Bowel Resection - Chadwick Gonzalez MD, FACS Height/Weight Height: 5 ft 4 in Weight: 94.5 kg Allergies Allergy/AdvReac Type Severity Reaction Status Date / Time Penicillins Allergy Unknown Verified 09/09/19 16:42 Medications Home Medications Medication Instructions Recorded Confirmed Last Taken atorvastatin [Lipitor] 20 mg PO DAILY 09/09/19 09/09/19 Unknown benazepril 5 mg PO DAILY 09/09/19 09/09/19 Unknown diclofenac sodium [Voltaren] 2 g TOPICAL BID 09/09/19 09/09/19 Unknown sulindac 150 mg PO BID 09/09/19 09/09/19 Unknown Active Medications Generic Name Dose Route Start Last Admin Trade Name Freq PRN Reason Stop Dose Admin Norepinephrine Bitartrate 8 mg 508 mls @ 25.203 mls/hr 09/09/19 16:15 09/09/19 16:44 / Dextrose IV 10/09/19 16:14 0.07 mcg/kg/min .[id number] MEHUL 25.2 mls/hr Titration Protocol 0.07 MCG/KG/MIN Vasopressin 20 units/ Sodium 101 mls @ 12.12 mls/hr 09/09/19 17:15 09/09/19 17:35 Chloride IV 10/09/19 17:14 0.04 unit/min .Q8H20M MEHUL 12.1 mls/hr Administration 0.04 UNIT/MIN Dobutamine HCl/Dextrose 500 mg in 250 mls @ 28.35 mls/hr 09/09/19 17:15 09/09/19 17:36 Dobutamine / D5w IV 09/10/19 02:04 10 mcg/kg/min .Q8H50M STA 28.4 mls/hr Administration Protocol 10 MCG/KG/MIN Fentanyl Citrate 1,250 mcg in 250 mls @ 10 mls/hr 09/09/19 17:29 09/09/19 17:35 Fentanyl Drip IV 09/23/19 17:28 50 mcg/hr .Q24H MEHUL 10 mls/hr Administration Protocol 50 MCG/HR Ioversol 119 ml 09/09/19 15:30 09/09/19 15:31 Optiray 320 125ml IV 09/13/19 15:29 119 ml ONCE PRN Administration Interaction Checking Past Medical History Medical History Cardiac arrest Dyslipidemia Hypertension Obesity Perforated diverticulum Sepsis Smoker Past Family History Family History Other No pertinent family history in first degree relatives Past Surgical History Surgical History No pertinent past surgical history Social History Smoking Status: Unknown if ever smoked Physical Exam Vital Signs Last Vital Signs Temp 38 C H 09/09/19 15:03 Pulse 122 H 09/09/19 18:00 Resp 26 H 09/09/19 18:00 BP 102/69 09/09/19 17:35 Pulse Ox 65 L 09/09/19 17:11 Constitutional + obese and + mechanically ventilated NG tube in place ENMT Mouth: + TMJ abnormality (unknown) Thyromental Distance: > or= 3.5 Finger Breadths Mallampati Class: Other (intubated) Neck normal visual inspection Respiratory Auscultation: lungs clear to auscultation bilaterally intubated, ventilator breath sounds Cardiovascular Rate/Rhythm: + tachycardic Skin + lesion (skin is mottled and cold to touch, slow capillary refill) Neurologic intubated, sedated Psychiatric intubated sedated Testing Laboratory Results 09/09/19 14:31 09/09/19 14:31 PT 13.0 Seconds (9.0-12.0) H 09/09/19 14:31 INR 1.3 (0.9-1.1) H 09/09/19 14:31 APTT 29.1 Seconds (21.0-31.0) 09/09/19 14:31 Blood Type A Negative 09/09/19 15:49 Antibody Screen NEGATIVE 09/09/19 15:49 Chest X-Ray Date: 09/09/19 XR chest 1V portable CLINICAL HISTORY: Chest x-ray status post central venous catheter placement. COMPARISON STUDY: September 09, 2019 FINDINGS: The heart is enlarged. There is a left subclavian central venous catheter. The tip projects over the superior vena cava at the azygos level. No pneumothorax is visualized. There is radiographic evidence of mild pulmonary vascular congestion/fluid overload. There are mild basilar atelectatic changes.[ IMPRESSION: 1. Interval placement of a left subclavian central venous catheter. The tip projects at the superior vena cava and azygos level 2. No evidence of pneumothorax 3. Radiographic evidence of mild congestive failure/fluid overload. ACT 112: Negative or not required by law. Electronically signed by: Fortino Glass M.D. 09/09/2019 4:[address] ANGIOGRAPHY OF THE CHEST DISSECTION PROTOCOL CLINICAL HISTORY: Hypotension. COMPARISON STUDY: Chest radiograph September 09, 2019 TECHNIQUE: Before and following the IV administration of 119 mL of Optiray-320, helical axial images of the chest were obtained. Maximal intensity projections and sagittal and coronal reformats were viewed on an independent 3D workstation. IV contrast was administered without complication. Automated exposure control was utilized for the study. A dose lowering technique was utilized adhering to the principles of ALARA. CT DOSE: 2209.46 mGy.cm FINDINGS: Caliber of the thoracic aorta is normal. There is no thoracic aortic dissection or intramural hematoma. Note is made of several small left-sided pulmonary emboli, including an embolus within the distal left pulmonary artery as well as emboli within the lingular and left lower lobe branches. The heart is moderately enlarged. There is moderate distention of the esophagus which is fluid-filled. Stomach is distended. A small right pleural effusion is noted. Right middle lobe and right lower lobe airspace opacity is noted. There is no left pleural effusion. There is no pneumothorax. Moderate perihepatic ascites is noted with pneumoperitoneum. IMPRESSION: 1. No thoracic aortic dissection. 2. Several small left-sided pulmonary emboli, as described above. 3. Pneumoperitoneum which is better depicted on the CT of the abdomen and pelvis. Please see that report for further description. 4. Small right pleural effusion. Right middle lobe and right lower lobe airspace opacity which favors atelectasis although aspiration could appear similar. 5. Moderate distended fluid-filled esophagus and stomach. Findings discussed with Dr. Burton at time of dictation. ACT 112: Negative or not required by law. Electronically signed by: Alon Tan M.D. 09/09/2019 4:05 PM Dictated: 09/09/19 1544 Transcribed: 09/09/[address] angio abd aorta runof w con CLINICAL HISTORY: Abdominal pain. Hypotension. COMPARISON STUDY: No previous studies for comparison. TECHNIQUE: Helical axial images of the abdomen and pelvis and both lower extreme is were obtained during arterial phase following intravenous injection of 119 cc Optiray 320 IV. Sagittal and coronal reconstructed reviewed as well as maximal intensity projections on an independent 3-D workstation. Automated exposure control was utilized for the study. A dose lowering technique was utilized adhering to the principles of ALARA. FINDINGS: Please note that the chest will be reported separately. Moderate pneumoperitoneum is present. There is moderate perihepatic ascites. The source is likely the sigmoid colon shown on axial image 388 of 1395. There is apparent disruption of the sigmoid colon wall with gas within the wall and adjacent soft tissues. Extraluminal stool is suspected. There may be extraluminal stool along the superior aspect the bladder as well. Mesenteric infiltration is noted. Evaluation of the abdomen and pelvis is suboptimal on this arterial phase study. The liver, spleen and pancreas are unremarkable. Increased enhancement of bilateral adrenal glands is noted. Multiple hypoenhancing foci within the kidneys are noted. No convincing evidence for a bowel obstruction. The appendix is normal. Mild small bowel dilatation is noted without transition point. There is severe osteoarthritis of the left hip. The caliber of the abdominal aorta is normal. Major branch vessels are patent. There is mild atherosclerotic plaque within the major vessels of the abdomen and pelvis and lower extremity is without significant stenosis. The bilateral common femoral, superficial femoral and popliteal arteries are patent. Evaluation of the calf vessels is essentially nondiagnostic as the scanner outran the bolus. IMPRESSION: 1. Moderate pneumoperitoneum consistent with a perforated hollow viscus, likely the sigmoid colon with apparent disruption of the sigmoid colon wall with extraluminal stool adjacent to the site of perforation and within the pelvis. Moderate ascites. Mesenteric infiltration. Surgical consultation is recommended. Findings discussed with Dr. Burton at time of dictation. 2. Numerous hypoenhancing foci within the kidneys which could be due to hypoperfusion or renal infarcts. Hyperenhancement of the bilateral adrenal glands and slit-like IVC suggest hypoperfusion syndrome. 3. Mild atherosclerotic plaque. No significant stenosis. No dissection. Essentially nondiagnostic evaluation of the bilateral calf vessels as the scanner outran the bolus. 4. Mild small bowel dilatation which suggests an ileus. Fluid-filled distended stomach and esophagus. ACT 112: Negative or not required by law. Electronically signed by: Alon Tan M.D. 09/09/2019 4:18 PM Dictated: 09/09/19 1557 Transcribed: 09/09/19 1606
[2019-09-09] MEDS ORDERED: MIDAZOLAM HCL 125 MG/250 ML BAG IV SCH (17:29)
[2019-09-09] MEDS ORDERED: fentaNYL citrate 100 MCG/2 ML VIAL IV PRN (17:29)
[2019-09-09] MEDS: fentaNYL DRIP 1,250 MCG/250 ML BAG IV SCH ×2 (17:35→22:10)
[2019-09-09] MEDS: VASOPRESSIN 20 UNITS in 0.9 % SODIUM CHLORIDE 100 ML IV SCH (17:35)
--- NOTE | 2019-09-09 17:38 | History & Physical Report ---
Date of Service September 09, 2019 Assessment & Plan (1) Sepsis: Patient has diffuse peritonitis with perforated colon and likely stool laying in her pelvis If anesthesia can stabilize the patient she will require laparotomy colostomy possible bowel resection Abdominal washout we may require being her abdomen open because of the diffuse sepsis She will obviously need ICU care postoperatively I discussed all of this with her and her daughter Tanja (2) Perforated diverticulum: History of Present Illness Primary Care Provider: NO PCP Patient presented the emergency room severe shortness of breath abdominal pain and back pain Found to have free air fluid in her abdomen inflammation and external luminal stool in the pelvis consistent with fused peritonitis From perforated diverticulitis. Currently was in the emergency room in [place] yesterday just inflammation and treated with oral antibiotics. Currently she is in the emergency room in respiratory arrest CODE BLUE was called she has been resuscitated at the present time Creatinine is greater than 3 Physically she is in septic shock Allergies Allergy/AdvReac Type Severity Reaction Status Date / Time Penicillins Allergy Unknown Verified 09/09/19 16:42 Home Medications Home Medications Medication Instructions Recorded Confirmed Type atorvastatin [Lipitor] 20 mg PO DAILY 09/09/19 09/09/19 History benazepril 5 mg PO DAILY 09/09/19 09/09/19 History diclofenac sodium [Voltaren] 2 g TOPICAL BID 09/09/19 09/09/19 History sulindac 150 mg PO BID 09/09/19 09/09/19 History Past Med/Surg History Medical History Cardiac arrest Dyslipidemia Hypertension Obesity Perforated diverticulum Sepsis Smoker Surgical History No pertinent past surgical history Family History Other No pertinent family history in first degree relatives Social History Feels Safe at Home: Yes Smoking Status: Unknown if ever smoked Physical Exam Physical Exam: Patient is currently being bagged with an endotracheal tube in place very tachycardic blood pressure 120 systolic The doctors are performing echocardiography the ER physicians and Dr. Georges are being on the patient Her abdomen is moderately distended her extremities are cyanotic Results & Data Vital Signs (Past 12 Hours) Vital Signs Temp Pulse Pulse Resp BP BP Pulse Ox 09/09/19 17:32 127 H 21 72/59 L 09/09/19 17:25 123 H 20 09/09/19 17:22 116 H 16 09/09/19 17:21 130 H 16 114/51 L 09/09/19 17:19 116 H 16 127/58 L 09/09/19 17:15 121 H 16 09/09/19 17:11 122 H 24 121/73 65 L 09/09/19 17:10 123 H 22 68 L 09/09/19 17:05 87 81 L 09/09/19 17:02 130 H 55 L 09/09/19 17:00 135 H 51 L 09/09/19 16:55 55 L 14 75 L 09/09/19 16:52 83 15 72 L 09/09/19 16:50 105 H 36 H 88 L 09/09/19 16:45 104 H 36 H 83 L 09/09/19 16:41 101 H 35 H 83 L 09/09/19 16:40 102 H 33 H 74 L 09/09/19 16:31 100 H 35 H 80/33 L 09/09/19 16:30 101 H 32 H 09/09/19 16:26 101 H 36 H 89 L 09/09/19 16:24 99 H 31 H 77 L 09/09/19 16:20 106 H 38 H 98 09/09/19 16:15 101 H 36 H 84 L 09/09/19 16:10 101 H 37 H 09/09/19 16:05 102 H 36 H 09/09/19 16:00 101 H 33 H 09/09/19 15:55 99 H 38 H 09/09/19 15:50 101 H 41 H 09/09/19 15:45 102 H 43 H 09/09/19 15:43 103 H 34 H 09/09/19 15:20 109 H 45 H 95 09/09/19 15:15 110 H 41 H 09/09/19 15:10 108 H 42 H 09/09/19 15:05 109 H 41 H 09/09/19 15:03 38 C H 109 H 46 H 91 I did review her CAT scan
[2019-09-09 17:46] LABS: iSTAT Arterial Blood Gas HCO3 18 meg/L (19-24); iSTAT Arterial Blood Gas pCO2 54 mmHg (35-46); iSTAT Arterial Blood Gas pH 7.12 (7.35-7.45); iSTAT Arterial Blood Gas pO2 98 mmHg (80-95); iSTAT Carbon Dioxide 19 mmol/L (24-31); iSTAT Hematocrit 31 % (37-47); iSTAT Hemoglobin 10.5 g/dl (12.0-16.0); iSTAT Potassium 3.2 mmol/L (3.3-5.0); iSTAT Sodium 144 mmol/L (135-144)
[2019-09-09] MEDS ORDERED: MIDAZOLAM HCL 1 MG/ML 2ML VIAL ONE ×2 (17:52→19:39)
[2019-09-09] MEDS ORDERED: fentaNYL citrate 100 MCG/2 ML VIAL ONE (18:12)
[2019-09-09] MEDS ORDERED: CISATRACURIUM BESYLATE IV SOLN 2 MG/ML 10 ML VIAL IV ONE (18:12)
--- NOTE | 2019-09-09 18:17 | Cardiology Consultation ---
Date of Consultation September 09, 2019 Assessment & Plan (1) Cardiac arrest: No obvious cardiac contraindication to proceeding to emergent surgery. Echo suggests post-arrest recovering heart without evidence of catastrophic cardiopulmonary event. Normal troponin, absence of ST changes on ECG, and lack of focal wall motion abnormalities on echocardiogram all weigh against primary cardiac event. Fluid resuscitation, inotropic and vasopressor support as dictated by [id number] hemodynamics. History of Present Illness Reason for Consultation: Stat Echocardiogram to assess cardiac function post cardiac arrest Requesting Physician: Puneet David DO Attending Physician: Puneet David DO History of Present Illness 59-year-old woman with uncertain past medical history seen yesterday in [place] ER with apparent diagnosis of diverticulitis, presents to [facility] ER in perforated viscus/septic shock/respiratory distress followed by cardiac arrest. Bradydysrhythmias then asystole during olegario-intubation period. Resuscitated after several minutes, currently unresponsive, hypotensive & cyanotic, ventilated, rhythm sinus tachycardia with atrial ectopy. Echocardiogram suggests recovering post-arrest heart without evidence for hemodynamically significant pulmonary embolism, pericardial effusion, acute coronary event, or aortic dissection. Patient planned for operative repair of perforation. Allergies Allergy/AdvReac Type Severity Reaction Status Date / Time Penicillins Allergy Unknown Verified 09/09/19 16:42 Home Medications Home Medications Medication Instructions Recorded Confirmed Type atorvastatin [Lipitor] 20 mg PO DAILY 09/09/19 09/09/19 History benazepril 5 mg PO DAILY 09/09/19 09/09/19 History diclofenac sodium [Voltaren] 2 g TOPICAL BID 09/09/19 09/09/19 History sulindac 150 mg PO BID 09/09/19 09/09/19 History Patient History Medical History Cardiac arrest Dyslipidemia Hypertension Obesity Perforated diverticulum Sepsis Smoker Surgical History No pertinent past surgical history Family History No pertinent family history in first degree relatives Social History Feels Safe at Home: Yes Smoking Status: Unknown if ever smoked Physical Exam Physical Exam: Obese middle aged woman, unresponsive. Skin: peripheral cyanosis HEENT: intubated Lungs: clear b/l Cardiac: faint heart tones, no obvious murmur Abdomen: distended Extremities: No edema, distal pulses not readily palpable Neuro: Obtunded Results & Data ([facility]) Laboratory Results 09/09/19 09/09/19 14:31 15:49 Creatinine 3.12 H Lactate 7.4 H* Troponin I < 0.015 Diagnostic Findings Bedside echocardiogram showed normal LV size with moderately reduced systolic function (EF initially 30-40%, improving to 40-50% during study), moderate global hypokinesis with no focal wall motion abnormalities. Normal right ventricular size with mildly reduced systolic function, also improving during the study. Normal aortic root size. No pericardial effusion. Doppler not performed. IVC not assessed. Study not recorded. ECG showed sinus tachycardia with frequent PACs and nonspecific T wave a bnormalities. No significant ST deviation. PG Care Time/CCT Total # of Minutes Spent Total Time Spent with Patient: Total time spent is greater than 50% in coordination of care (as documented) at patient's floor/unit and/or counseling patient: Coding Level of Care Code 35589 Inpt Consult Level 3 Diagnoses Cardiac arrest I46.9
[2019-09-09 18:29] LABS: Fibrinogen 438 mg/dl (184-400); INR 1.4 (0.9-1.1); Partial Thromboplastin Ratio 1.3; Partial Thromboplastin Time 35.3 Seconds (21.0-31.0); Prothrombin Time 14.4 Seconds (9.0-12.0)
[2019-09-09] MEDS ORDERED: LIDOCAINE HCL 2% 2 ML VIAL/AMP(20MG/ML) INFIL ONE (18:51)
[2019-09-09] MEDS ORDERED: SODIUM BICARB 8.4% INJ 50 MEQ/50 ML SYR ONE (18:51)
--- NOTE | 2019-09-09 19:29 | Post Operative Brief Note ---
PG Immediate Post Op with CF Date of Surgery September 09, 2019 Pre & Post Diagnosis Operation Date: 09/09/19 12:15 Pre-Op Diagnosis: Sepsis, perforated diverticulum Post-Op Diagnosis: Sepsis, perforated diverticulum I identified the patient and participated in the time-out.: Yes Procedure Operation Date: 09/09/19 12:15 Actual Procedures p Exploratory Laparotomy, Sigmoid Colon Resection, Creation of COlo(Not Applicable) - Chadwick Gonzalez MD, FACS abdominal washout, wound vac placed Surgeon Chadwick Gonzalez MD, FACS Theatre Director nurses Estimated Blood Loss 20 Findings Consistent with Post-Op Diagnosis Specimens Specimen Description: A. sigmoid colon suture is distal Drains Solorzano Catheter (placed in ER, clear yellow urine noted. Anesthesia to monitor urine output) and Mahamed-Perez Drain (19 [place] islander x4)
--- NOTE | 2019-09-09 19:30 | Critical Care Consultation ---
Date of Consultation September 09, 2019 Assessment & Plan (1) Septic shock: Reason Critically Ill: 59-year-old female presents to the ICU following perforated bowel, septic shock, cardiac arrest. Currently intubated on multiple vasopressors. Neuro - Rashes: Goal -1 to 0 Sedation: Versed and fentanyl drips Cardiac - Shock/cardiac arrestpatient experienced cardiac arrest following intubation, likely related to acidosis as patient and lactate of 7 and pH 7.12 -EF 30 to 40% bedside echo, will follow up with TTE in a.m. -Cardiogenic versus septic, likely mixed -Currently on inotropes and vasopressors, weaning as tolerated -Patient septic with a lactate of 7, trending, trending pH; patient received 4 A bicarb thus far -Random cortisol 40 -Continuous BP monitoring with a line -IV bolus with caution considering reduced EF -Continuous monitor telemetry HTNcurrently holding home meds per hypotension Respiratory - Pulmonary embolismspatient presents with hypoxia, CTA confirmed multiple small left-sided pulmonary emboli -Vent settings currently 24/500/5/ 100%, thus far unable to wean oxygen as patient continues to be hypoxic on ABGs -Discussed low-dose heparin infusion with Dr. Gonzalez, will proceed with low- dose no bolus after 8 hours postop if PTT normalizes, however considering DIC and elevated coags at this time; will continue to monitor for now. Considering patient high risk for bleeding -Follow-up ultrasound bilateral lower extremities -Continuous pulse ox monitoring, trend ABGs and adjust vent as appropriate -Follow-up chest x-ray in a.m. GI - Perforated sigmoid colonpatient underwent laparotomy with sigmoid repair and colostomy, washout, drain x4; abdomen left open with wound VAC -Per OR report, abdomen was full of stool, patient presents severely septic, see treatment for sepsis below -N.p.o., NG tube to low wall suction -Follow-up surgical recs RENAL/LYTES - Acute renal failureno history renal disease, no baseline creatinine -Creatinine on admission 3 now improving -Unsure of etiology as patient hypotensive but also displayed significant intra-abdominal extension -Abdomen now left open with wound VAC -Maintain maps greater than 65 -Patient maintaining adequate urine output -Continue IV fluid resuscitation, consider poor EF -Continue to monitor routine BMPs -Avoid nephrotoxins -Consider consult nephrology if worsening - Solorzano insertedstrict I's and O's ENDO - No history diabetes or thyroid disease We will check TSH and hemoglobin A1c with a.m. lab ICU hyperglycemic protocol HEME - Pancytopenialikely sepsis induced -will continue to trend CBCs, expect to improve with treatment of sepsis -will transfuse if indicated DICsepsis induced versus pulmonary thrombus -Continue to trend for now, some improvement on last coags -No current signs of bleeding, monitoring H&H -will transfuse with FFP if indicated, monitoring currently -Holding anticoagulation for now, will start low-dose heparin for PEs after 8 hours if coags normalized ID - Sepsissecondary to intra-abdominal source from perforated bowel -Initial lactate 7, trending; fever 38 Celsius on admission -Blood cultures pending -Continue Zosyn and caspofungin -See treatment shock above LINES/IV ACCESS - CVC, A-line, PIV, ETT, NGT DVT PROPHYLAXIS - SCDs, currently holding anticoagulation following surgery and considering DIC I have personally spent 85 minutes of critical care time in the direct management of this patient. This is a life/limb threatening event. This includes time spent evaluating patient, direct bedside care, chart review, placing orders, interpretation of diagnostic studies, discussion with consultants, patient, and family members, as well as other required patient management activities. This time is exclusive of all separately billable procedures, and teaching time and separate from and in addition to any other critical care service time. Thank you for allowing us to participate in the care of this patient. Please refer to my attending physician's documentation for any further recommendations. (2) Perforated abdominal viscus: (3) Respiratory failure: (4) Metabolic acidosis: (5) Acute renal failure: (6) Pulmonary embolism: (7) Hypertension: (8) Dyslipidemia: (9) Cardiac arrest: (10) Cardiogenic shock: Supervising Physician Co-Signing Physician Notes I have personally evaluated and examined this patient. I agree with assessment and plan of Dede CAREY. I saw the patient initially in the emergency department and participated in the resuscitation. I also saw the patient immediately postoperatively. We will continue fluids to optimize CVP 7-9 hopefully minimizing bowel edema, trending lactates and ABGs. Cardiac arrest was approximately for 1 minute. At this time we will hold therapeutic hypothermia as a believe this is secondary to acidosis and relative hypoxemia as the patient vital signs returned and looks significantly improved with the addition of vasopressors. My critical care time is reflective of services provided 09/10/2019 [id number]. I have personally spent 60 minutes of critical care time in the direct management of this patient. This is a life/limb threatening event. This includes time spent evaluating patient, direct bedside care, chart review, placing orders, interpretation of diagnostic studies, discussion with consultants, patient, and/or family members regarding treatment decisions, as well as other required patient management activities. This time is exclusive of all separately billable procedures, and teaching time and separate from and in addition to any other critical care service time. History of Present Illness Attending Physician: Chadwick Gonzalez MD, [facility] History of Present Illness Patient is a 59-year-old female past medical history HTN, smoking who was recently discharged from [facility] with diverticulitis and sent home on antibiotics. Patient began to experience worsening abdominal pain along with shortness of breath and back pain. CT abdomen showed free air fluid in the abdomen and externally normal stool in the pelvis consistent with diffuse peritonitis from perforated diverticulitis. She was intubated to be taken to the OR, but shortly after experienced cardiac arrest and ACLS was initiated. She was resuscitated and stabilized and transferred to the OR where she underwent laparotomy, sigmoid resection and colostomy, abdominal washout and wound VAC. Abdomen was left open following surgery. Following cardiac arrest, bedside echo revealed moderately reduced systolic function with EF 30 to 40% which improved to 40 to 50% during exam. Central line and A-line inserted as patient is on multiple vasoactive drips and septic. She was left intubated following procedure and transferred to the ICU. On arrival to the ICU the patient is intubated and sedated. Currently on vasopressin, Levophed, utamine drips. Patient to remain in ICU for ventilator and vasoactive drip management. Allergies Allergy/AdvReac Type Severity Reaction Status Date / Time Penicillins Allergy Unknown Verified 09/09/19 16:42 Home Medications Home Medications Medication Instructions Recorded Confirmed Type atorvastatin [Lipitor] 20 mg PO DAILY 09/09/19 09/09/19 History benazepril 5 mg PO DAILY 09/09/19 09/09/19 History diclofenac sodium [Voltaren] 2 g TOPICAL BID 09/09/19 09/09/19 History sulindac 150 mg PO BID 09/09/19 09/09/19 History Patient History Medical History (Updated 09/10/19 @ 14:52 by Scott Roque DO) Cardiac arrest (Acute) Dyslipidemia Hypertension Obesity Perforated diverticulum Sepsis (Acute) Smoker Surgical wound present Surgical History No pertinent past surgical history Family History Other No pertinent family history in first degree relatives Social History Preferred Language: Syriac Communication Ability: intubated Beliefs That Will Affect Care: None Current Living Situation: Spouse Other Information That Helps Us Care for You: No Feels Safe at Home: Yes Smoking Status: Current some day smoker Hx Alcohol Use: No Hx Substance Use: No Review of Systems Review of Systems: Unobtainable due to endotracheal tube and Unobtainable due to reduced consciousness Physical Exam Eyes: PERRL, conjunctivae normal, anicteric sclerae ENMT: external ear and nose normal, oropharynx normal Neck: trachea midline, no thyromegaly Respiratory: normal respiratory effort, lungs clear to auscultation symmetric chest movement Auscultation: no crackles and no wheezes Cardiovascular: Rate/Rhythm: + tachycardic Heart Sounds: no murmur Vessels: no JVD Extremities: + abnormal capillary refill and no edema Gastrointestinal (Abdomen): Abdomen open and wound VAC to midline incision; AMALIA drain x4; Musculoskeletal: PETE Skin: Pale, mottled, no rashes Neurologic: PETE Psychiatric: PETE Genitourinary: Indwelling Solorzano Results & Data ([facility]) Vital Signs (Past 12 Hours) Vital Signs Temp Pulse Pulse Resp BP BP Pulse Ox 09/09/19 18:00 122 H 26 H 09/09/19 17:40 121 H 21 09/09/19 17:35 128 H 26 H 102/69 09/09/19 17:32 127 H 21 72/59 L 09/09/19 17:31 116 H 19 107/91 09/09/19 17:30 115 H 27 H 09/09/19 17:25 123 H 20 09/09/19 17:22 116 H 16 09/09/19 17:21 130 H 16 114/51 L 09/09/19 17:19 116 H 16 127/58 L 09/09/19 17:15 121 H 16 09/09/19 17:11 122 H 24 121/73 65 L 09/09/19 17:10 123 H 22 68 L 09/09/19 17:05 87 81 L 09/09/19 17:02 130 H 55 L 09/09/19 17:00 135 H 51 L 09/09/19 16:55 55 L 14 75 L 09/09/19 16:52 83 15 72 L 09/09/19 16:50 105 H 36 H 88 L 09/09/19 16:45 104 H 36 H 83 L 09/09/19 16:41 101 H 35 H 83 L 09/09/19 16:40 102 H 33 H 74 L 09/09/19 16:31 100 H 35 H 80/33 L 09/09/19 16:30 101 H 32 H 09/09/19 16:26 101 H 36 H 89 L 09/09/19 16:24 99 H 31 H 77 L 09/09/19 16:20 106 H 38 H 98 09/09/19 16:15 101 H 36 H 84 L 09/09/19 16:10 101 H 37 H 09/09/19 16:05 102 H 36 H 09/09/19 16:00 101 H 33 H 09/09/19 15:55 99 H 38 H 09/09/19 15:50 101 H 41 H 09/09/19 15:45 102 H 43 H 09/09/19 15:43 103 H 34 H 09/09/19 15:20 109 H 45 H 95 09/09/19 15:15 110 H 41 H 09/09/19 15:10 108 H 42 H 09/09/19 15:05 109 H 41 H 09/09/19 15:03 38 C H 109 H 46 H 91 Diagnostic Findings Laboratory Results - last 24 hr 09/09/19 09/09/19 09/09/19 14:31 14:31 14:31 WBC 6.34 RBC 5.39 Hgb 15.9 POC Hgb Hct 48.1 H POC Hct MCV 89.2 MCH 29.5 MCHC 33.1 RDW Std Deviation 51.3 H RDW Coeff of Allan 15.7 H Plt Count 322 MPV 11.2 H Immature Gran % (Auto) 1.3 Neut % (Auto) 76.2 Lymph % (Auto) 18.0 Stokes % (Auto) 4.3 Eos % (Auto) 0.0 Baso % (Auto) 0.2 Immature Gran # (Auto) 0.08 H Neut # (Auto) 4.84 Lymph # (Auto) 1.14 L Stokes # (Auto) 0.27 Eos # (Auto) 0.00 Baso # (Auto) 0.01 Toxic Vacuolation Giant Platelets Polychromasia Echinocytes PT 13.0 H INR 1.3 H APTT 29.1 PTT Ratio 1.1 Fibrinogen Fibrin Degrad Products D-Dimer 24508 H* POC pH POC pCO2 POC pO2 POC HCO3 POC Total CO2 POC Base Excess ABG pH ABG pCO2 ABG pO2 ABG HCO3 ABG O2 Saturation ABG Base Excess Alec Test Barometric Pressure Oxygen Given POC Sodium Sodium 142 POC Potassium Potassium 4.2 Chloride 108 H Carbon Dioxide 17 L Anion Gap 17.0 H BUN 32 H Creatinine 3.12 H Est Cr Clr Drug Dosing 22.2 Est GFR ( Amer) 18.3 Est GFR (Non-Af Amer) 15.8 BUN/Creatinine Ratio 10.2 Glucose 98 Lactate Calcium 10.4 H Phosphorus Magnesium Total Bilirubin 0.7 AST 62 H ALT 41 Alkaline Phosphatase 89 Total Creatine Kinase 608 H CK-MB (CK-2) 24.5 H CK/CKMB % Calc 4.0 H Troponin I < 0.015 Total Protein 6.8 Albumin 3.0 L Globulin 3.8 Albumin/Globulin Ratio 0.8 L Lipase 68 L Random Cortisol Hepatitis C Ab Screen Blood Type Antibody Screen 09/09/19 09/09/19 09/09/19 15:49 15:49 16:19 WBC RBC Hgb POC Hgb Hct POC Hct MCV MCH MCHC RDW Std Deviation RDW Coeff of Allan Plt Count MPV Immature Gran % (Auto) Neut % (Auto) Lymph % (Auto) Stokes % (Auto) Eos % (Auto) Baso % (Auto) Immature Gran # (Auto) Neut # (Auto) Lymph # (Auto) Stokes # (Auto) Eos # (Auto) Baso # (Auto) Toxic Vacuolation Giant Platelets Polychromasia Echinocytes PT INR APTT PTT Ratio Fibrinogen Fibrin Degrad Products D-Dimer POC pH POC pCO2 POC pO2 POC HCO3 POC Total CO2 POC Base Excess ABG pH 7.12 L* ABG pCO2 42 ABG pO2 86 ABG HCO3 13 L ABG O2 Saturation 95.1 H ABG Base Excess -15.3 L Alec Test Barometric Pressure 726.4 Oxygen Given 15L O2 NRB POC Sodium Sodium POC Potassium Potassium Chloride Carbon Dioxide Anion Gap BUN Creatinine Est Cr Clr Drug Dosing Est GFR ( Amer) Est GFR (Non-Af Amer) BUN/Creatinine Ratio Glucose Lactate 7.4 H* Calcium Phosphorus Magnesium Total Bilirubin AST ALT Alkaline Phosphatase Total Creatine Kinase CK-MB (CK-2) CK/CKMB % Calc Troponin I Total Protein Albumin Globulin Albumin/Globulin Ratio Lipase Random Cortisol Hepatitis C Ab Screen Blood Type A Negative Antibody Screen NEGATIVE 09/09/19 09/09/19 09/09/19 16:36 17:29 17:45 WBC RBC Hgb POC Hgb 10.5 L Hct POC Hct 31 L MCV MCH MCHC RDW Std Deviation RDW Coeff of Allan Plt Count MPV Immature Gran % (Auto) Neut % (Auto) Lymph % (Auto) Stokes % (Auto) Eos % (Auto) Baso % (Auto) Immature Gran # (Auto) Neut # (Auto) Lymph # (Auto) Stokes # (Auto) Eos # (Auto) Baso # (Auto) Toxic Vacuolation Giant Platelets Polychromasia Echinocytes PT 14.4 H INR 1.4 H APTT 35.3 H PTT Ratio 1.3 Fibrinogen 438 H Fibrin Degrad Products D-Dimer POC pH 7.12 L* POC pCO2 54 H POC pO2 98 H POC HCO3 18 L POC Total CO2 19 L POC Base Excess -12.0 L ABG pH ABG pCO2 ABG pO2 ABG HCO3 ABG O2 Saturation ABG Base Excess Alec Test Barometric Pressure Oxygen Given POC Sodium 144 Sodium POC Potassium 3.2 L Potassium Chloride Carbon Dioxide Anion Gap BUN Creatinine Est Cr Clr Drug Dosing Est GFR ( Amer) Est GFR (Non-Af Amer) BUN/Creatinine Ratio Glucose Lactate 5.4 H* Calcium Phosphorus Magnesium Total Bilirubin AST ALT Alkaline Phosphatase Total Creatine Kinase CK-MB (CK-2) CK/CKMB % Calc Troponin I Total Protein Albumin Globulin Albumin/Globulin Ratio Lipase Random Cortisol Hepatitis C Ab Screen Blood Type Antibody Screen 09/09/19 09/09/19 09/09/19 17:45 18:10 19:53 WBC 2.51 L RBC 4.17 L Hgb 11.8 L D POC Hgb 10.5 L Hct 36.1 L POC Hct 31 L MCV 86.6 MCH 28.3 MCHC 32.7 RDW Std Deviation 49.6 H RDW Coeff of Allan 15.5 H Plt Count 167 MPV 10.1 Immature Gran % (Auto) 1.7 Neut % (Auto) 66.1 Lymph % (Auto) 28.4 Stokes % (Auto) 3.8 Eos % (Auto) 0.0 Baso % (Auto) 0.0 Immature Gran # (Auto) 0.04 H Neut # (Auto) 1.56 Lymph # (Auto) 0.67 L Stokes # (Auto) 0.09 L Eos # (Auto) 0.00 Baso # (Auto) 0.00 Toxic Vacuolation 1+ Giant Platelets 1+ Polychromasia 1+ Echinocytes 1+ PT INR APTT PTT Ratio Fibrinogen Fibrin Degrad Products >40 H D-Dimer POC pH 7.25 L POC pCO2 41 POC pO2 88 POC HCO3 18 L POC Total CO2 19 L POC Base Excess -9.0 ABG pH ABG pCO2 ABG pO2 ABG HCO3 ABG O2 Saturation ABG Base Excess Alec Test Barometric Pressure Oxygen Given POC Sodium 144 Sodium POC Potassium 3.3 Potassium Chloride Carbon Dioxide Anion Gap BUN Creatinine Est Cr Clr Drug Dosing Est GFR ( Amer) Est GFR (Non-Af Amer) BUN/Creatinine Ratio Glucose Lactate Calcium Phosphorus Magnesium Total Bilirubin AST ALT Alkaline Phosphatase Total Creatine Kinase CK-MB (CK-2) CK/CKMB % Calc Troponin I Total Protein Albumin Globulin Albumin/Globulin Ratio Lipase Random Cortisol Hepatitis C Ab Screen Blood Type Antibody Screen 09/09/19 09/09/19 09/09/19 19:53 19:53 19:53 WBC RBC Hgb POC Hgb Hct POC Hct MCV MCH MCHC RDW Std Deviation RDW Coeff of Allan Plt Count MPV Immature Gran % (Auto) Neut % (Auto) Lymph % (Auto) Stokes % (Auto) Eos % (Auto) Baso % (Auto) Immature Gran # (Auto) Neut # (Auto) Lymph # (Auto) Stokes # (Auto) Eos # (Auto) Baso # (Auto) Toxic Vacuolation Giant Platelets Polychromasia Echinocytes PT 16.5 H INR 1.7 H APTT 41.0 H PTT Ratio 1.5 Fibrinogen Fibrin Degrad Products D-Dimer POC pH POC pCO2 POC pO2 POC HCO3 POC Total CO2 POC Base Excess ABG pH ABG pCO2 ABG pO2 ABG HCO3 ABG O2 Saturation ABG Base Excess Alec Test Barometric Pressure Oxygen Given POC Sodium Sodium 147 H POC Potassium Potassium 3.7 Chloride 116 H Carbon Dioxide 21 Anion Gap 10.0 BUN 33 H Creatinine 2.00 H D Est Cr Clr Drug Dosing 34.6 Est GFR ( Amer) 31.3 Est GFR (Non-Af Amer) 27.0 BUN/Creatinine Ratio 16.5 Glucose 115 H Lactate 7.4 H* Calcium 8.2 L D Phosphorus Magnesium Total Bilirubin AST ALT Alkaline Phosphatase Total Creatine Kinase CK-MB (CK-2) CK/CKMB % Calc Troponin I Total Protein Albumin Globulin Albumin/Globulin Ratio Lipase Random Cortisol Hepatitis C Ab Screen Blood Type Antibody Screen 09/09/19 09/09/19 09/09/19 21:21 21:21 21:21 WBC RBC Hgb POC Hgb Hct POC Hct MCV MCH MCHC RDW Std Deviation RDW Coeff of Allan Plt Count MPV Immature Gran % (Auto) Neut % (Auto) Lymph % (Auto) Stokes % (Auto) Eos % (Auto) Baso % (Auto) Immature Gran # (Auto) Neut # (Auto) Lymph # (Auto) Stokes # (Auto) Eos # (Auto) Baso # (Auto) Toxic Vacuolation Giant Platelets Polychromasia Echinocytes PT 16.1 H INR 1.6 H APTT 38.3 H PTT Ratio 1.4 Fibrinogen Fibrin Degrad Products D-Dimer POC pH POC pCO2 POC pO2 POC HCO3 POC Total CO2 POC Base Excess ABG pH ABG pCO2 ABG pO2 ABG HCO3 ABG O2 Saturation ABG Base Excess Alec Test Barometric Pressure Oxygen Given POC Sodium Sodium 144 POC Potassium Potassium 3.9 Chloride 116 H Carbon Dioxide 18 L Anion Gap 10.0 BUN 35 H Creatinine 2.05 H Est Cr Clr Drug Dosing 33.8 Est GFR ( Amer) 30.4 Est GFR (Non-Af Amer) 26.2 BUN/Creatinine Ratio 17.0 Glucose 152 H Lactate 6.0 H* Calcium 8.4 L Phosphorus 3.9 Magnesium 4.4 H Total Bilirubin AST ALT Alkaline Phosphatase Total Creatine Kinase CK-MB (CK-2) CK/CKMB % Calc Troponin I Total Protein Albumin Globulin Albumin/Globulin Ratio Lipase Random Cortisol Hepatitis C Ab Screen Blood Type Antibody Screen 09/09/19 09/09/19 21:21 21:21 WBC RBC Hgb POC Hgb Hct POC Hct MCV MCH MCHC RDW Std Deviation RDW Coeff of Allan Plt Count MPV Immature Gran % (Auto) Neut % (Auto) Lymph % (Auto) Stokes % (Auto) Eos % (Auto) Baso % (Auto) Immature Gran # (Auto) Neut # (Auto) Lymph # (Auto) Stokes # (Auto) Eos # (Auto) Baso # (Auto) Toxic Vacuolation Giant Platelets Polychromasia Echinocytes PT INR APTT PTT Ratio Fibrinogen Fibrin Degrad Products D-Dimer POC pH POC pCO2 POC pO2 POC HCO3 POC Total CO2 POC Base Excess ABG pH 7.34 L ABG pCO2 32 L ABG pO2 63 L ABG HCO3 17 L ABG O2 Saturation 91.9 ABG Base Excess -7.9 Alec Test Pos Barometric Pressure 730.7 Oxygen Given 15L VENT POC Sodium Sodium POC Potassium Potassium Chloride Carbon Dioxide Anion Gap BUN Creatinine Est Cr Clr Drug Dosing Est GFR ( Amer) Est GFR (Non-Af Amer) BUN/Creatinine Ratio Glucose Lactate Calcium Phosphorus Magnesium Total Bilirubin AST ALT Alkaline Phosphatase Total Creatine Kinase CK-MB (CK-2) CK/CKMB % Calc Troponin I Total Protein Albumin Globulin Albumin/Globulin Ratio Lipase Random Cortisol 40.90 Hepatitis C Ab Screen Neg Blood Type Antibody Screen Medications Administered Home Medications atorvastatin [Lipitor] 20 mg PO DAILY 09/09/19 [History Confirmed 09/09/19] benazepril 5 mg PO DAILY 09/09/19 [History Confirmed 09/09/19] diclofenac sodium [Voltaren] 2 g TOPICAL BID 09/09/19 [History Confirmed 09/09/19] sulindac 150 mg PO BID 09/09/19 [History Confirmed 09/09/19] Active Medications Fentanyl Citrate (Fentanyl Citrate) 25 mcg IV ONE PRN PRN Reason: Pain Not Controlled by Drip Stop: 09/23/19 17:28 Vasopressin 20 units/ Sodium (Chloride) 101 mls @ 12.12 mls/hr IV .Q8H20M [facility] Stop: 10/09/19 17:14 Last Admin: 09/09/19 17:35 Dose: 0.04 unit/min, 12.1 mls/hr Documented by: Dobutamine HCl/Dextrose (Dobutamine / D5w) 500 mg in 250 mls @ 28.35 mls/hr IV .Q8H50M ST[facility]; Protocol Stop: 09/10/19 02:04 Last Admin: 09/09/19 17:36 Dose: 10 mcg/kg/min, 28.4 mls/hr Documented by: Fentanyl Citrate (Fentanyl Drip) 1,250 mcg in 250 mls @ 10 mls/hr IV .Q24H MEHUL; Protocol Stop: 09/23/19 17:28 Last Admin: 09/09/19 22:10 Dose: 50 mcg/hr, 10 mls/hr Documented by: Midazolam HCl (Versed) 125 mg in 250 mls @ 2 mls/hr IV .Q24H MEHUL; Protocol Stop: 10/09/19 17:28 Norepinephrine Bitartrate 8 mg (/ Dextrose) 508 mls @ 18.002 mls/hr IV .Q24H MEHUL; Protocol Stop: 10/09/19 20:29 Parenteral Electrolytes (Normosol-R) 1,000 mls @ 80 mls/hr IV .[id number] MEHUL Stop: 10/09/19 20:59 Last Admin: 09/09/19 22:00 Dose: 80 mls/hr Documented by: Piperacillin Sod/Tazobactam (Sod 3.375 gm/ Dextrose) 115 mls @ 28.75 mls/hr IV Q8 MEHUL; Protocol Stop: 09/23/19 21:29 Last Admin: 09/09/19 21:46 Dose: 28.8 mls/hr Documented by: Miscellaneous (Icu Protocol For Hyperglycemia) 1 ea N/A PRN PRN; Protocol PRN Reason: Hyperglycemia Protocol Stop: 09/11/19 19:42 Miscellaneous Information (Consult) 1 ea N/A UD PRN PRN Reason: Consult Stop: 10/09/19 21:02 Coding Level of Care Code Critical Care ea addt'l 30 min Diagnoses Septic shock A41.9; R65.21 Perforated abdominal viscus R19.8 Respiratory failure J96.01 Chronicity: acute Respiratory failure complication: hypoxia Metabolic acidosis E87.2 Acute renal failure N17.9 Acute renal failure type: unspecified Pulmonary embolism I26.99 Hypertension I10 Dyslipidemia E78.5 Cardiac arrest I46.9 Cardiogenic shock R57.0 Time Spent (min) 60 Comment I have personally spent 60 minutes of critical care time in the direct management of this patient. This is a life/limb threatening event. This includes time spent evaluating patient, direct bedside care, chart review, placing orders, interpretation of diagnostic studies, discussion with consultants, patient, and/or family members regarding treatment decisions, as well as other required patient management activities. This time is exclusive of all separately billable procedures, and teaching time and separate from and in addition to any other critical care service time. (1) Acute renal failure Acute renal failure type: unspecified Qualified Code(s): N17.9 - Acute kidney failure, unspecified (2) Respiratory failure Chronicity: acute Respiratory failure complication: hypoxia Qualified Code(s): J96.01 - Acute respiratory failure with hypoxia
[2019-09-09] MEDS ORDERED: ICU PROTOCOL FOR HYPERGLYCEMIA PRN (19:43)
[2019-09-09] MEDS ORDERED: CASPOFUNGIN 70 MG in SODIUM CHLORIDE 0.9% 250 ML IV SCH (20:00)
[2019-09-09 20:15] LABS: INR 1.7 (0.9-1.1); Partial Thromboplastin Ratio 1.5; Prothrombin Time 16.5 Seconds (9.0-12.0)
[2019-09-09 20:23] LABS: iSTAT Arterial Blood Gas HCO3 18 meg/L (19-24); iSTAT Arterial Blood Gas pCO2 41 mmHg (35-46); iSTAT Arterial Blood Gas pH 7.25 (7.35-7.45); iSTAT Arterial Blood Gas pO2 88 mmHg (80-95); iSTAT Carbon Dioxide 19 mmol/L (24-31); iSTAT Hematocrit 31 % (37-47); iSTAT Hemoglobin 10.5 g/dl (12.0-16.0); iSTAT Potassium 3.3 mmol/L (3.3-5.0); iSTAT Sodium 144 mmol/L (135-144)
[2019-09-09 20:23] LABS: BUN Creatinine Ratio 16.5 (10-20); Calcium 8.2 mg/dl (8.5-10.1); Creatinine Clr Calc Pharmacy 34.6 ml/min; Est GFR (African American) 31.3; Potassium 3.7 mmol/L (3.5-5.1)
--- NOTE | 2019-09-09 20:31 | Anesthesiology Progress Note ---
Date of Service September 09, 2019 Anesthesia Post Procedure Vital Signs Vital Signs: Temp Pulse Pulse Pulse Resp BP BP 09/09/19 19:49 32.5 C L 105 H 24 163/82 H 09/09/19 19:42 33.5 C L 115 H 24 91/57 L 09/09/19 18:00 122 H 26 H 09/09/19 17:40 121 H 21 09/09/19 17:35 128 H 26 H 102/69 09/09/19 17:32 127 H 21 09/09/19 17:31 116 H 19 107/91 09/09/19 17:30 115 H 27 H 09/09/19 17:25 123 H 20 09/09/19 17:22 116 H 16 09/09/19 17:21 130 H 16 114/51 L 09/09/19 17:19 116 H 16 127/58 L 09/09/19 17:15 121 H 16 09/09/19 17:11 122 H 24 121/73 09/09/19 17:10 123 H 22 09/09/19 17:05 87 09/09/19 17:02 130 H 09/09/19 17:00 135 H 09/09/19 16:55 55 L 14 09/09/19 16:52 83 15 09/09/19 16:50 105 H 36 H 09/09/19 16:45 104 H 36 H 09/09/19 16:41 101 H 35 H 09/09/19 16:40 102 H 33 H 09/09/19 16:31 100 H 35 H 80/33 L 09/09/19 16:30 101 H 32 H 09/09/19 16:26 101 H 36 H 09/09/19 16:24 99 H 31 H 09/09/19 16:20 106 H 38 H 09/09/19 16:15 101 H 36 H 09/09/19 16:10 101 H 37 H 09/09/19 16:05 102 H 36 H 09/09/19 16:00 101 H 33 H 09/09/19 15:55 99 H 38 H 09/09/19 15:50 101 H 41 H 09/09/19 15:45 102 H 43 H 09/09/19 15:43 103 H 34 H 09/09/19 15:20 109 H 45 H 09/09/19 15:15 110 H 41 H 02/13/20 15:10 108 H 42 H 09/09/19 15:05 109 H 41 H 09/09/19 15:03 38 C H 109 H 46 H BP BP Pulse Ox 09/09/19 19:49 96/87 L 93 09/09/19 19:42 09/09/19 18:00 09/09/19 17:40 09/09/19 17:35 09/09/19 17:32 72/59 L 09/09/19 17:31 09/09/19 17:30 09/09/19 17:25 09/09/19 17:22 09/09/19 17:21 09/09/19 17:19 09/09/19 17:15 09/09/19 17:11 65 L 09/09/19 17:10 68 L 09/09/19 17:05 81 L 09/09/19 17:02 55 L 09/09/19 17:00 51 L 09/09/19 16:55 75 L 09/09/19 16:52 72 L 09/09/19 16:50 88 L 09/09/19 16:45 83 L 09/09/19 16:41 83 L 09/09/19 16:40 74 L 09/09/19 16:31 09/09/19 16:30 09/09/19 16:26 89 L 09/09/19 16:24 77 L 09/09/19 16:20 98 09/09/19 16:15 84 L 09/09/19 16:10 09/09/19 16:05 09/09/19 16:00 09/09/19 15:55 09/09/19 15:50 09/09/19 15:45 09/09/19 15:43 09/09/19 15:20 95 09/09/19 15:15 09/09/19 15:10 09/09/19 15:05 09/09/19 15:03 91 Transfer of Care Handoff Completed per policy Notes Mental Status: see notes below Patient Amnestic to Procedure: Yes Nausea / Vomiting: adequately controlled Pain: adequately controlled Airway Patency, RR, SpO2: see Notes below BP & HR: see Notes below Hydration State: see Notes below Anesthetic Complications: no major complications apparent Notes: The patient is a 59 y/o female who presented with sepsis due to bowel perforation in the ER. She was intubated by the ER staff in the ER. She had a brief cardiac arrest in the ER. Dr. Marin managed the patient while she was resuscitated in the ER. She was placed on norepinephrine, dobutamine, and vasopressin drips. She was then taken to the OR while intubated and on pressors. Dr. Gonzalez performed a bowel resection and abdominal washout. He left the abdominal wall open and placed a wound vac. The patient remained on pressors throughout the procedure. She was given three liters of crystalloid as well as an ampule of sodium bicarbonate. The patient was transferred intubated and on monitors to the ICU. She had 700 ml of urine output and EBL was 20 ml. Current vitals are SpO2 of 96 (on the ventilator). HR is in the 100s. BP is 120s/70s. She remains on pressors but will be weened by the ICU team. Full sign out was given to the ICU team.
[2019-09-09 20:33] LABS: Hematocrit (blood only) 36.1 % (37-47); Hemoglobin 11.8 g/dL (12.0-16.0); Mean Corpuscular Hemoglobin 28.3 pg (25-34); Mean Corpuscular Hgb Conc 32.7 g/dL (32-36); Mean Corpuscular Volume 86.6 fL (80-100); Mean Platelet Volume 10.1 fL (7.4-10.4); Platelet Count 167 K/uL (130-400); RDW Coefficient of Variation 15.5 % (11.5-14.5); RDW Standard Deviation 49.6 fL (36.4-46.3); Red Blood Count 4.17 M/uL (4.2-5.4); White Blood Count 2.51 K/uL (4.8-10.8)
[2019-09-09 21:06] VITALS: TEMP 95.5
--- NOTE | 2019-09-09 21:26 | Operative Report (OR) ---
DATE OF OPERATION: 09/09/2019 NAME OF OPERATION: Laparotomy, sigmoid resection and colostomy, abdominal washout and wound VAC. PREOPERATIVE DIAGNOSIS: Perforated sigmoid colon with diffuse peritonitis and sepsis with cardiopulmonary arrest. STAFF SURGEON: Chadwick Gonzalez MD ANESTHESIA: General. DESCRIPTION OF PROCEDURE: The patient was brought in the operating room emergently, placed on the operating room table. She was already intubated and Solorzano catheter was placed. Pneumatic stockings, orogastric tube were placed. Her abdomen was prepped and draped in usual fashion. Midline incision was made carrying dissection down into the abdomen encountering feculent ascites and then there was also free feces within the mid lower abdomen. There was a very large hole in the sigmoid colon from where the feces came. At this point, the feces was removed and then the fluid aspirated. The descending colon transected using the ALURY 80 stapler and the mesocolon transected using the LigaSure and 2-0 silk sutures. The rectosigmoid was transected using the LAURY 80 stapler. The rectum was oversewn using 3-0 Prolene suture. At this point, abdominal washout was performed using approximately 6 liters of saline with the end liters being antibiotic. Four #19 round Mahamed-Perez drains were placed, right upper quadrant, left upper quadrant, and then left and right abdomen and pelvis, secured using 3-0 nylon suture. The descending colon was brought out through the left abdominal wall as an end-colostomy. It was not matured. It was secured to the fascia using 0 chromic suture and to the skin using 2-0 chromic suture. After the washout, I felt that the patient's abdomen which was very firm and distended, it would have been very difficult to close and I was concerned about compartment syndrome. Therefore, I placed a wound VAC using the Abthera placing the plastic with foam into the abdomen covering the mid portion with foam and then placing the clear plastic over this area and attaching it to a vacuum device. The patient was then taken to the intensive care unit in critical condition. I attest to the content of the Intraoperative Record and any orders documented therein. Any exception s are noted below.
[2019-09-09 21:36] LABS: Base Excess ABG -7.9 mEq/L (-9-1.8); HCO3 ABG 17 mmol/L (19-24); Oxygen Saturation ABG 91.9 % (90-95); PCO2 ABG 32 mmHg (35-46); PO2 ABG 63 mmHg (80-95); pH ABG 7.34 (7.35-7.45)
[2019-09-09 21:37] LABS: Allen Test Pos (Pos)
[2019-09-09] MEDS ORDERED: NORMOSOL-R 500 ML IV ONE ×2 (21:42→23:04)
[2019-09-09 21:44] LABS: Echinocytes 1+; Giant Platelets 1+; Immature Granulocytes # (auto) 0.04 K/uL (0.00-0.02); Immature Granulocytes % (auto) 1.7 %; Lymphocytes # (auto) 0.67 K/uL (1.2-3.4); Lymphocytes % (auto) 28.4 %; Monocytes # (auto) 0.09 K/uL (0.11-0.59); Monocytes % (auto) 3.8 %; Neutrophils # (auto) 1.56 K/uL (1.4-6.5); Neutrophils % (auto) 66.1 %; Polychromasia 1+; Toxic Vacuolation 1+
[2019-09-09] MEDS: PIPERACILLIN/TAZOBACTAM 3.375 GM in DEXTROSE 5% 100 ML IV SCH (21:46)
[2019-09-09 21:47] LABS: INR 1.6 (0.9-1.1); Partial Thromboplastin Ratio 1.4; Partial Thromboplastin Time 38.3 Seconds (21.0-31.0); Prothrombin Time 16.1 Seconds (9.0-12.0)
[2019-09-09 21:49] LABS: Calcium 8.4 mg/dl (8.5-10.1); Creatinine Clr Calc Pharmacy 33.8 ml/min; Est GFR (African American) 30.4; Est GFR (Non-African American) 26.2; Potassium 3.9 mmol/L (3.5-5.1)
[2019-09-09] MEDS ORDERED: POTASSIUM ACETATE 10 MEQ in 0.9 % SODIUM CHLORIDE 100 ML IV ONE (22:00)
[2019-09-09] MEDS: NORMOSOL-R 1,000 ML IV SCH (22:00)
[2019-09-09] MEDS ORDERED: SODIUM BICARB 8.4% INJ 50 MEQ/50 ML SYR IV STA (22:07)
[2019-09-09 22:30] LABS: Magnesium 4.4 mg/dl (1.8-2.4); Phosphorus 3.9 mg/dl (2.5-4.9)
--- NOTE | 2019-09-09 22:41 | Ultrasound Report ---
US venous doppler lower extremity bilateral CLINICAL HISTORY: Pulmonary embolism RECENT SURGERY COMPARISON STUDY: No previous studies for comparison. FINDINGS: Real-time and color flow Doppler imaging were performed. Flow was seen within the femoral, popliteal and calf veins with no intraluminal thrombus demonstrated. The saphenous vein is patent. IMPRESSION: No evidence of lower extremity DVT ACT 112: Negative or not required by law. Electronically signed by: Fortino Glass M.D. 09/09/2019 10:40 PM
[2019-09-09 22:47] LABS: Act87 Hepatitis C IgG Screen Neg (Neg)
[2019-09-09] MEDS: NOREPINEPHRINE BIT INJ 8 MG in DEXTROSE 5% 500 ML IV SCH (23:58)
[2019-09-10 01:27] LABS: Hematocrit (blood only) 36.2 % (37-47); Hemoglobin 12.1 g/dL (12.0-16.0)
[2019-09-10 01:27] LABS: iSTAT Art Bld Gas pCO2 Correct 35 mmHg (35-46); iSTAT Art Bld Gas pH Corrected 7.385 (7.35-7.45); iSTAT Arterial Blood Gas HCO3 20 meg/L (19-24); iSTAT Arterial Blood Gas pCO2 33 mmHg (35-46); iSTAT Arterial Blood Gas pO2 80 mmHg (80-95); iSTAT Arterial Blood Gas pO2 C 86; iSTAT Carbon Dioxide 21 mmol/L (24-31); iSTAT FiO2 100 %; iSTAT Hematocrit 33 % (37-47); iSTAT Hemoglobin 11.2 g/dl (12.0-16.0); iSTAT Potassium 4.1 mmol/L (3.3-5.0); iSTAT Site Art Line; iSTAT Sodium 141 mmol/L (135-144)
[2019-09-10] MEDS ORDERED: NORMOSOL-R 1,000 ML IV ONE (01:35)
[2019-09-10 01:51] LABS: Partial Thromboplastin Ratio 1.7
[2019-09-10 01:59] LABS: Partial Thromboplastin Time 45.8 Seconds (21.0-31.0)
[2019-09-10] MEDS: VASOPRESSIN 20 UNITS in 0.9 % SODIUM CHLORIDE 100 ML IV SCH ×2 (02:18→10:32)
[2019-09-10] MEDS ORDERED: HYDROCORTISONE SOD 100 MG in SYRINGE 0 ML IV ONE (03:15)
[2019-09-10] MEDS: DOBUTamine / D5W 500 MG/250 ML BAG IV SCH ×2 (03:21→12:28)
[2019-09-10 04:11] LABS: Hematocrit (blood only) 35.2 % (37-47); Hemoglobin 11.9 g/dL (12.0-16.0); Mean Corpuscular Hemoglobin 28.2 pg (25-34); Mean Corpuscular Hgb Conc 33.8 g/dL (32-36); Mean Corpuscular Volume 83.4 fL (80-100); Mean Platelet Volume 10.9 fL (7.4-10.4); Platelet Count 167 K/uL (130-400); RDW Coefficient of Variation 15.5 % (11.5-14.5); RDW Standard Deviation 47.8 fL (36.4-46.3); Red Blood Count 4.22 M/uL (4.2-5.4); White Blood Count 3.79 K/uL (4.8-10.8)
[2019-09-10 04:16] LABS: Base Excess ABG -3.2 mEq/L (-9-1.8); HCO3 ABG 20 mmol/L (19-24); PCO2 ABG 30 mmHg (35-46); PO2 ABG 68 mmHg (80-95); pH ABG 7.44 (7.35-7.45)
[2019-09-10 04:18] LABS: Allen Test Pos (Pos)
[2019-09-10 04:31] LABS: BUN Creatinine Ratio 16.8 (10-20); Calcium 7.5 mg/dl (8.5-10.1); Est GFR (African American) 28.5; Est GFR (Non-African American) 24.6; INR 1.7 (0.9-1.1); Partial Thromboplastin Ratio 1.7; Potassium 4.3 mmol/L (3.5-5.1); Prothrombin Time 16.5 Seconds (9.0-12.0)
[2019-09-10] MEDS: NOREPINEPHRINE BIT INJ 16 MG in DEXTROSE 5% 500 ML IV SCH ×2 (04:35→10:32)
[2019-09-10 04:42] LABS: Thyroid Stimulating Hormone 0.999 uIu/ml (0.300-4.500)
[2019-09-10 04:47] LABS: Echinocytes 2+
[2019-09-10 04:50] LABS: Partial Thromboplastin Time 46.3 Seconds (21.0-31.0)
[2019-09-10] MEDS: NOREPINEPHRINE BIT INJ 8 MG in DEXTROSE 5% 500 ML IV SCH (05:10)
[2019-09-10] MEDS ORDERED: CALCIUM CHLORIDE 10% 1,000 MG in SODIUM CHLORIDE 0.9% 50 ML IV STA (05:15)
[2019-09-10] MEDS: PIPERACILLIN/TAZOBACTAM 3.375 GM in DEXTROSE 5% 100 ML IV SCH (05:59)
[2019-09-10] MEDS ORDERED: NORMOSOL-R 500 ML IV ONE (06:14)
[2019-09-10 06:18] LABS: Estimated Average Glucose 126 mg/dl
--- NOTE | 2019-09-10 06:39 | Surgery Progress Note ---
Date of Service September 10, 2019 Assessment & Plan (1) Perforated abdominal viscus: Patient history of feculent diffuse peritonitis from sigmoid perforation secondary to diverticulitis She is currently intubated requiring pressure support She is making urine her creatinine is not rising Her abdomen is relatively soft a wound VAC in place ending serous fluid All of her drains are draining serous fluid She experienced a cardiopulmonary arrest in the emergency room and was quite hypoxic Obviously we will continue her IV antibiotics I have no concerns for bowel ischemia and her stoma is normal Results & Data Vital Signs (Past 12 Hours) Vital Signs Temp Pulse Pulse Resp BP BP BP 09/10/19 05:58 107 H 24 09/10/19 05:00 107 H 09/10/19 04:30 106 H 09/10/19 04:00 109 H 09/10/19 03:30 110 H 09/10/19 03:00 109 H 09/10/19 02:30 111 H 09/10/19 02:16 112 H 09/10/19 02:11 113 H 09/10/19 02:06 113 H 09/10/19 02:01 115 H 09/10/19 02:00 114 H 09/10/19 01:56 115 H 09/10/19 01:46 118 H 09/10/19 01:41 119 H 09/10/19 01:36 117 H 24 09/10/19 01:30 116 H 09/10/19 01:27 116 H 09/10/19 01:21 117 H 09/10/19 01:11 116 H 09/10/19 01:06 116 H 09/10/19 01:01 115 H 09/10/19 01:00 117 H 09/10/19 00:51 115 H 09/10/19 00:41 114 H 09/10/19 00:31 114 H 09/10/19 00:30 114 H 09/10/19 00:16 114 H 09/10/19 00:06 112 H 09/10/19 00:01 112 H 09/10/19 00:00 112 H 09/09/19 23:51 110 H 09/09/19 23:46 111 H 09/09/19 23:41 111 H 09/09/19 23:30 114 H 09/09/19 23:26 114 H 09/09/19 23:00 124 H 09/09/19 22:57 123 H 25 H 09/09/19 22:56 124 H 09/09/19 22:45 123 H 09/09/19 22:40 125 H 80/69 L 09/09/19 22:36 123 H 09/09/19 22:31 127 H 09/09/19 22:30 123 H 09/09/19 22:06 124 H 09/09/19 22:00 122 H 09/09/19 21:51 127 H 76/61 L 09/09/19 21:46 129 H 09/09/19 21:31 119 H 09/09/19 21:30 123 H 101/80 09/09/19 21:25 115 H 09/09/19 21:16 113 H 101/78 09/09/19 20:53 35.3 C L 105 H 24 90/66 L 09/09/19 20:25 105 H 09/09/19 20:20 105 H 09/09/19 20:19 106 H 133/86 09/09/19 20:15 108 H 24 09/09/19 20:14 106 H 107/94 09/09/19 20:02 31.5 C L 101 H 24 111/88 09/09/19 19:57 99 H 24 09/09/19 19:52 101 H 24 09/09/19 19:49 32.5 C L 105 H 24 163/82 H 96/87 L 09/09/19 19:47 105 H 24 09/09/19 19:42 33.5 C L 115 H 24 91/57 L Pulse Ox 09/10/19 05:58 95 09/10/19 05:00 94 09/10/19 04:30 95 09/10/19 04:00 94 09/10/19 03:30 94 09/10/19 03:00 95 09/10/19 02:30 97 09/10/19 02:16 97 09/10/19 02:11 97 09/10/19 02:06 97 09/10/19 02:01 97 09/10/19 02:00 09/10/19 01:56 98 09/10/19 01:46 97 09/10/19 01:41 09/10/19 01:36 98 09/10/19 01:30 09/10/19 01:27 09/10/19 01:21 09/10/19 01:11 09/10/19 01:06 09/10/19 01:01 09/10/19 01:00 97 09/10/19 00:51 09/10/19 00:41 09/10/19 00:31 09/10/19 00:30 09/10/19 00:16 09/10/19 00:06 09/10/19 00:01 09/10/19 00:00 98 09/09/19 23:51 09/09/19 23:46 09/09/19 23:41 09/09/19 23:30 09/09/19 23:26 09/09/19 23:00 92 09/09/19 22:57 97 09/09/19 22:56 09/09/19 22:45 09/09/19 22:40 09/09/19 22:36 09/09/19 22:31 09/09/19 22:30 09/09/19 22:06 09/09/19 22:00 96 09/09/19 21:51 09/09/19 21:46 09/09/19 21:31 09/09/19 21:30 09/09/19 21:25 09/09/19 21:16 94 09/09/19 20:53 95 09/09/19 20:25 09/09/19 20:20 09/09/19 20:19 95 09/09/19 20:15 95 09/09/19 20:14 95 09/09/19 20:02 95 09/09/19 19:57 95 09/09/19 19:52 95 09/09/19 19:49 93 09/09/19 19:47 95 09/09/19 19:42 PG Care Time/CCT Total # of Minutes Spent Total Time Spent with Patient: Total time spent is greater than 50% in coordination of care (as documented) at patient's floor/unit and/or counseling patient: Coding Level of Care Code None Diagnoses Perforated abdominal viscus R19.8
--- NOTE | 2019-09-10 07:00 | XRay Report ---
XR chest 1V portable HISTORY: 59 years-old Female resp failure acute respiratory failure COMPARISON: Chest radiograph and CTA chest 09/09/2019 TECHNIQUE: AP view of the chest FINDINGS: Cardiomediastinal and hilar silhouettes are unchanged. Endotracheal tube has been placed which termin ates 2.8 cm superior to the jo ann. An enteric tube is present coiled within the region of the gastri c fundus with distal tip projecting inferiorly outside the [id number]. Mild pulmonary vascular con gestion. Trace left and small right pleural effusions with right greater left bibasilar opacities. No pneumothorax. Degenerative changes of the shoulders and spine. IMPRESSION: 1. Tube placement as above. 2. Trace left and small right pleural effusions with right greater than left bibasilar opacities sugg estive of probable atelectasis. 3. Probable mild pulmonary vascular congestion. ACT 112: Negative or not required by law. The above report was generated using voice recognition software. It may contain grammatical, syntax o r spelling errors. Electronically signed by: Pankaj Pham M.D. 09/10/2019 6:59 AM
[2019-09-10 07:08] LABS: Eosinophils # (manual) 0.03 K/uL (0-0.5); Eosinophils % (manual) 0.9 %; Lymphocytes # (manual) 1.05 K/uL (1.2-3.4); Lymphocytes % (manual) 27.8 %; Metamyelocytes # (manual) 1.81 K/uL (0-0); Metamyelocytes % (manual) 47.8 %; Monocytes # (manual) 0.13 K/uL (0.11-0.59); Monocytes % (manual) 3.5 %; Myelocytes # (manual) 0.16 K/uL (0-0); Myelocytes % (manual) 4.3 %; Neutrophils % (manual) 15.7 %
--- NOTE | 2019-09-10 07:22 | Critical Care Progress Note ---
Date of Service September 10, 2019 Assessment & Plan (1) Admitted to intensive care unit: Reason Critically Ill: 59-year-old female presents to the ICU following perforated bowel, septic shock, cardiac arrest. Currently intubated on multiple vasopressors. Given patient's critical status, need for several pressors to maintain BP, and worsening creatinine, necessitating CVVH which we do not have at [facility], patient will be transferred to [facility] today. See Dr. Marin's addendum for more details. Neuro - Rass: Goal -1 to 0 Sedation: Versed and fentanyl drips - aiming to wean and extubate Cardiac - Shock/cardiac arrestpatient experienced cardiac arrest following intubation, likely related to acidosis as patient and lactate of 7 and pH 7.12 -EF 30 to 40% bedside echo -Cardiogenic versus septic, likely mixed -Currently on inotropes and vasopressors -> dopamine, levophed and vasopressin -Patient septic with a lactate of 7, trending, trending pH; patient received 4 A bicarb thus far -Random cortisol 40 -IV bolus with caution considering reduced EF HTNcurrently holding home meds per hypotension Respiratory - Pulmonary embolismspatient presents with hypoxia, CTA confirmed multiple small left-sided pulmonary emboli -Vent settings currently 20/430/7/40% -Unable to start heparin drip due to elevated coags - patient high risk for bleeding -ultrasound bilateral lower extremities negative GI - Perforated sigmoid colonpatient underwent laparotomy with sigmoid repair and colostomy, washout, drain x4; abdomen left open with wound VAC -Per OR report, abdomen was full of stool, patient presents severely septic, see treatment for sepsis below -N.p.o., NG tube to low wall suction -GI prophylaxis with 20mg IV pepcid daily RENAL/LYTES - Acute renal failureno history renal disease, no baseline creatinine -Creatinine on admission 3 now 2.34 -received 1g calcium gluconate -Abdomen now left open with wound VAC -Maintain maps greater than 65 -discussed with nephrology who recommends CVVH which we do not have at [facility] - Solorzano insertedstrict I's and O's ENDO - No history diabetes or thyroid disease ICU hyperglycemic protocol HEME - Pancytopenialikely sepsis induced received 5mg IV vitamin K DICsepsis induced -Continue to trend for now -No current signs of bleeding, monitoring H&H ID - Sepsissecondary to intra-abdominal source from perforated bowel -Initial lactate 7, trending; fever 38 Celsius on admission -Blood cultures pending -Continue Zosyn and caspofungin LINES/IV ACCESS - CVC, A-line, PIV, ETT, NGT DVT PROPHYLAXIS - SCDs, currently holding anticoagulation following surgery and considering DIC Thank you for allowing us to participate in the care of this patient. Please refer to my attending physician's documentation for any further recommendations. (2) Perforated abdominal viscus: (3) Cardiogenic shock: (4) Septic shock: (5) Respiratory failure: (6) Metabolic acidosis: (7) Acute renal failure: (8) Pulmonary embolism: (9) Hypertension: (10) Obesity: (11) Cardiac arrest: Admission and Anticipated Discharge Date Admission Date: September 09, 2019 Supervising Physician Co-Signing Physician Notes Dr. Dowell was resident physician during care of patient. I separately evaluated patient for graham portions of the history and the exam. I was present during the critical portion of medical decision making, and I discussed the case with the resident. I generally agree with the findings and plan. Patient was discussed in multidisciplinary rounds Patient is alert and able to follow complex commands. Continued aggressive vasa support, worsening creatinine. I discussed this with nephrology, we have limited dialysis services and no CVVH, given the multiple complexities of an open abdomen and likely renal replacement therapy requirements patient will be best served at a tertiary care center. I discussed with the patient's daughter and and both in agreement with transfer to [facility]. I discussed with of critical care who is willing to accept the patient as well as of general surgery who will be able to see the patient for surgical consultation. At this time we will fly to [facility] for renal replacement services that are unavailable here. Subjective Able to open eyes, nod yes or no in response to qns. Able to follow commands. Otherwise, hx limited secondary to endotracheal tube. Review of Systems Review of Systems: Unobtainable due to endotracheal tube Physical Exam Constitutional: + obese endotracheal tube placed Eyes: PERRL, conjunctivae normal, anicteric sclerae Respiratory: Auscultation: + diminished lung sounds Cardiovascular: Rate/Rhythm: + tachycardic Heart Sounds: no murmur Gastrointestinal (Abdomen): +wound vac in place over open abdomen Neurologic: able to open eyes and follow commands Results & Data ([facility]) Vital Signs (Past 12 Hours) Vital Signs Temp Pulse Pulse Resp BP BP BP 09/10/19 05:58 107 H 24 09/10/19 05:00 107 H 09/10/19 04:30 106 H 09/10/19 04:00 109 H 09/10/19 03:30 110 H 09/10/19 03:00 109 H 09/10/19 02:30 111 H 09/10/19 02:16 112 H 09/10/19 02:11 113 H 09/10/19 02:06 113 H 09/10/19 02:01 115 H 09/10/19 02:00 114 H 09/10/19 01:56 115 H 09/10/19 01:46 118 H 09/10/19 01:41 119 H 09/10/19 01:36 117 H 24 09/10/19 01:30 116 H 09/10/19 01:27 116 H 09/10/19 01:21 117 H 09/10/19 01:11 116 H 09/10/19 01:06 116 H 09/10/19 01:01 115 H 09/10/19 01:00 117 H 09/10/19 00:51 115 H 09/10/19 00:41 114 H 09/10/19 00:31 114 H 09/10/19 00:30 114 H 09/10/19 00:16 114 H 09/10/19 00:06 112 H 09/10/19 00:01 112 H 09/10/19 00:00 112 H 09/09/19 23:51 110 H 09/09/19 23:46 111 H 09/09/19 23:41 111 H 09/09/19 23:30 114 H 09/09/19 23:26 114 H 09/09/19 23:00 124 H 09/09/19 22:57 123 H 25 H 09/09/19 22:56 124 H 09/09/19 22:45 123 H 09/09/19 22:40 125 H 80/69 L 09/09/19 22:36 123 H 09/09/19 22:31 127 H 09/09/19 22:30 123 H 09/09/19 22:06 124 H 09/09/19 22:00 122 H 09/09/19 21:51 127 H 76/61 L 09/09/19 21:46 129 H 09/09/19 21:31 119 H 09/09/19 21:30 123 H 101/80 09/09/19 21:25 115 H 09/09/19 21:16 113 H 101/78 09/09/19 20:53 35.3 C L 105 H 24 90/66 L 09/09/19 20:25 105 H 09/09/19 20:20 105 H 09/09/19 20:19 106 H 133/86 09/09/19 20:15 108 H 24 09/09/19 20:14 106 H 107/94 09/09/19 20:02 31.5 C L 101 H 24 111/88 09/09/19 19:57 99 H 24 09/09/19 19:52 101 H 24 09/09/19 19:49 32.5 C L 105 H 24 163/82 H 96/87 L 09/09/19 19:47 105 H 24 09/09/19 19:42 33.5 C L 115 H 24 91/57 L Pulse Ox 09/10/19 05:58 95 09/10/19 05:00 94 09/10/19 04:30 95 09/10/19 04:00 94 09/10/19 03:30 94 09/10/19 03:00 95 09/10/19 02:30 97 09/10/19 02:16 97 09/10/19 02:11 97 09/10/19 02:06 97 09/10/19 02:01 97 09/10/19 02:00 09/10/19 01:56 98 09/10/19 01:46 97 09/10/19 01:41 09/10/19 01:36 98 09/10/19 01:30 09/10/19 01:27 09/10/19 01:21 09/10/19 01:11 09/10/19 01:06 09/10/19 01:01 09/10/19 01:00 97 09/10/19 00:51 09/10/19 00:41 09/10/19 00:31 09/10/19 00:30 09/10/19 00:16 09/10/19 00:06 09/10/19 00:01 09/10/19 00:00 98 09/09/19 23:51 09/09/19 23:46 09/09/19 23:41 09/09/19 23:30 09/09/19 23:26 09/09/19 23:00 92 09/09/19 22:57 97 09/09/19 22:56 09/09/19 22:45 09/09/19 22:40 09/09/19 22:36 09/09/19 22:31 09/09/19 22:30 09/09/19 22:06 09/09/19 22:00 96 09/09/19 21:51 09/09/19 21:46 09/09/19 21:31 09/09/19 21:30 09/09/19 21:25 09/09/19 21:16 94 09/09/19 20:53 95 09/09/19 20:25 09/09/19 20:20 09/09/19 20:19 95 09/09/19 20:15 95 09/09/19 20:14 95 09/09/19 20:02 95 09/09/19 19:57 95 09/09/19 19:52 95 09/09/19 19:49 93 09/09/19 19:47 95 09/09/19 19:42 Critical Care Time Critical Care Time: Yes Total Critical Care Time: 105 I have personally spent 105 minutes of critical care time in the direct management of this patient. This is a life/limb threatening event. This includes time spent evaluating patient, direct bedside care, chart review, placing orders, interpretation of diagnostic studies, discussion with consultants, patient, and/or family members regarding treatment decisions, as well as other required patient management activities. This time is exclusive of all separately billable procedures, and teaching time and separate from and in addition to any other critical care service time. Resident Activity Tracking Resident Involvement: Resident Care Provided Care Provided: Adult Hospital Medicine (1) Acute renal failure Acute renal failure type: unspecified Qualified Code(s): N17.9 - Acute kidney failure, unspecified (2) Respiratory failure Chronicity: acute Respiratory failure complication: hypoxia Qualified Code(s): J96.01 - Acute respiratory failure with hypoxia
--- NOTE | 2019-09-10 07:50 | Anesthesiology Progress Note ---
Date of Service September 10, 2019 Anesthesia Post Procedure Vital Signs Vital Signs: Temp Pulse Pulse Pulse Resp BP BP 09/10/19 05:58 107 H 24 09/10/19 05:00 107 H 09/10/19 04:30 106 H 09/10/19 04:00 109 H 09/10/19 03:30 110 H 09/10/19 03:00 109 H 09/10/19 02:30 111 H 09/10/19 02:16 112 H 09/10/19 02:11 113 H 09/10/19 02:06 113 H 09/10/19 02:01 115 H 09/10/19 02:00 114 H 09/10/19 01:56 115 H 09/10/19 01:46 118 H 09/10/19 01:41 119 H 09/10/19 01:36 117 H 24 09/10/19 01:30 116 H 09/10/19 01:27 116 H 09/10/19 01:21 117 H 09/10/19 01:11 116 H 09/10/19 01:06 116 H 09/10/19 01:01 115 H 09/10/19 01:00 117 H 09/10/19 00:51 115 H 09/10/19 00:41 114 H 09/10/19 00:31 114 H 09/10/19 00:30 114 H 09/10/19 00:16 114 H 09/10/19 00:06 112 H 09/10/19 00:01 112 H 09/10/19 00:00 112 H 09/09/19 23:51 110 H 09/09/19 23:46 111 H 09/09/19 23:41 111 H 09/09/19 23:30 114 H 09/09/19 23:26 114 H 09/09/19 23:00 124 H 09/09/19 22:57 123 H 25 H 09/09/19 22:56 124 H 09/09/19 22:45 123 H 09/09/19 22:40 125 H 80/69 L 09/09/19 22:36 123 H 09/09/19 22:31 127 H 09/09/19 22:30 123 H 09/09/19 22:06 124 H 09/09/19 22:00 122 H 09/09/19 21:51 127 H 76/61 L 09/09/19 21:46 129 H 09/09/19 21:31 119 H 09/09/19 21:30 123 H 101/80 09/09/19 21:25 115 H 09/09/19 21:16 113 H 101/78 09/09/19 20:53 35.3 C L 105 H 24 90/66 L 09/09/19 20:25 105 H 09/09/19 20:20 105 H 09/09/19 20:19 106 H 133/86 09/09/19 20:15 108 H 24 09/09/19 20:14 106 H 107/94 09/09/19 20:02 31.5 C L 101 H 24 111/88 09/09/19 19:57 99 H 24 09/09/19 19:52 101 H 24 09/09/19 19:49 32.5 C L 105 H 24 163/82 H 09/09/19 19:47 105 H 24 09/09/19 19:42 33.5 C L 115 H 24 91/57 L 09/09/19 18:00 122 H 26 H 09/09/19 17:40 121 H 21 09/09/19 17:35 128 H 26 H 102/69 09/09/19 17:32 127 H 21 09/09/19 17:31 116 H 19 107/91 09/09/19 17:30 115 H 27 H 09/09/19 17:25 123 H 20 09/09/19 17:22 116 H 16 09/09/19 17:21 130 H 16 114/51 L 09/09/19 17:19 116 H 16 127/58 L 09/09/19 17:15 121 H 16 09/09/19 17:11 122 H 24 121/73 09/09/19 17:10 123 H 22 09/09/19 17:05 87 09/09/19 17:02 130 H 09/09/19 17:00 135 H 09/09/19 16:55 55 L 14 09/09/19 16:52 83 15 09/09/19 16:50 105 H 36 H 09/09/19 16:45 104 H 36 H 09/09/19 16:41 101 H 35 H 09/09/19 16:40 102 H 33 H 09/09/19 16:31 100 H 35 H 80/33 L 09/09/19 16:30 101 H 32 H 09/09/19 16:26 101 H 36 H 09/09/19 16:24 99 H 31 H 09/09/19 16:20 106 H 38 H 09/09/19 16:15 101 H 36 H 09/09/19 16:10 101 H 37 H 09/09/19 16:05 102 H 36 H 09/09/19 16:00 101 H 33 H 09/09/19 15:55 99 H 38 H 09/09/19 15:50 101 H 41 H 09/09/19 15:45 102 H 43 H 09/09/19 15:43 103 H 34 H 09/09/19 15:20 109 H 45 H 09/09/19 15:15 110 H 41 H 09/09/19 15:10 108 H 42 H 09/09/19 15:05 109 H 41 H 09/09/19 15:03 38 C H 109 H 46 H BP BP Pulse Ox 09/10/19 05:58 95 09/10/19 05:00 94 09/10/19 04:30 95 09/10/19 04:00 94 09/10/19 03:30 94 09/10/19 03:00 95 09/10/19 02:30 97 09/10/19 02:16 97 09/10/19 02:11 97 09/10/19 02:06 97 09/10/19 02:01 97 09/10/19 02:00 09/10/19 01:56 98 09/10/19 01:46 97 09/10/19 01:41 09/10/19 01:36 98 09/10/19 01:30 09/10/19 01:27 09/10/19 01:21 09/10/19 01:11 09/10/19 01:06 09/10/19 01:01 09/10/19 01:00 97 09/10/19 00:51 09/10/19 00:41 09/10/19 00:31 09/10/19 00:30 09/10/19 00:16 09/10/19 00:06 09/10/19 00:01 09/10/19 00:00 98 09/09/19 23:51 09/09/19 23:46 09/09/19 23:41 09/09/19 23:30 09/09/19 23:26 09/09/19 23:00 92 09/09/19 22:57 97 09/09/19 22:56 09/09/19 22:45 09/09/19 22:40 09/09/19 22:36 09/09/19 22:31 09/09/19 22:30 09/09/19 22:06 09/09/19 22:00 96 09/09/19 21:51 09/09/19 21:46 09/09/19 21:31 09/09/19 21:30 09/09/19 21:25 09/09/19 21:16 94 09/09/19 20:53 95 09/09/19 20:25 09/09/19 20:20 09/09/19 20:19 95 09/09/19 20:15 95 09/09/19 20:14 95 09/09/19 20:02 95 09/09/19 19:57 95 09/09/19 19:52 95 09/09/19 19:49 96/87 L 93 09/09/19 19:47 95 09/09/19 19:42 09/09/19 18:00 09/09/19 17:40 09/09/19 17:35 09/09/19 17:32 72/59 L 09/09/19 17:31 09/09/19 17:30 09/09/19 17:25 09/09/19 17:22 09/09/19 17:21 09/09/19 17:19 09/09/19 17:15 09/09/19 17:11 65 L 09/09/19 17:10 68 L 09/09/19 17:05 81 L 09/09/19 17:02 55 L 09/09/19 17:00 51 L 09/09/19 16:55 75 L 09/09/19 16:52 72 L 09/09/19 16:50 88 L 09/09/19 16:45 83 L 09/09/19 16:41 83 L 09/09/19 16:40 74 L 09/09/19 16:31 09/09/19 16:30 09/09/19 16:26 89 L 09/09/19 16:24 77 L 09/09/19 16:20 98 09/09/19 16:15 84 L 09/09/19 16:10 09/09/19 16:05 09/09/19 16:00 09/09/19 15:55 09/09/19 15:50 09/09/19 15:45 09/09/19 15:43 09/09/19 15:20 95 09/09/19 15:15 09/09/19 15:10 09/09/19 15:05 09/09/19 15:03 91 Notes Mental Status: see notes below BP & HR: stable & adequate Hydration State: stable & adequate Notes: Patient intubated and sedated in ICU. unable to participate in evaluation.
[2019-09-10] MEDS ORDERED: PERFLUTREN LIPID MICROSPHERE (DEFINITY) IV ONE (08:41)
[2019-09-10] MEDS: fentaNYL DRIP 1,250 MCG/250 ML BAG IV SCH (08:44)
[2019-09-10 08:46] LABS: INR 1.7 (0.9-1.1); Partial Thromboplastin Ratio 1.7; Prothrombin Time 16.8 Seconds (9.0-12.0)
[2019-09-10 08:50] LABS: BUN Creatinine Ratio 16.3 (10-20); Calcium 8.1 mg/dl (8.5-10.1); Creatinine Clr Calc Pharmacy 31.3 ml/min; Est GFR (African American) 27.8; Potassium 4.6 mmol/L (3.5-5.1)
[2019-09-10 09:11] LABS: Partial Thromboplastin Time 46.4 Seconds (21.0-31.0)
[2019-09-10] MEDS ORDERED: CALCIUM GLUCONATE 10% 1,000 MG in SODIUM CHLORIDE 0.9% 50 ML IV STA (09:57)
[2019-09-10] MEDS ORDERED: PHYTONADIONE 5 MG in SODIUM CHLORIDE 0.9% 50 ML IV STA (09:58)
[2019-09-10] MEDS: NORMOSOL-R 1,000 ML IV SCH (10:32)
[2019-09-10] MEDS ORDERED: CASPOFUNGIN 70 MG in SODIUM CHLORIDE 0.9% 250 ML IV STA (10:52)
[2019-09-10] MEDS ORDERED: THIAMINE HCL 200 MG in SODIUM CHLORIDE 0.9% 50 ML IV SCH (11:00)
[2019-09-10] MEDS ORDERED: FAMOTIDINE 20 MG in SYRINGE 3 ML IV SCH (11:00)
--- NOTE | 2019-09-10 11:36 | Nephrology Consultation ---
Date of Consultation September 10, 2019 Assessment & Plan (1) Acute renal failure: Clinically consistent with ischemic ATN. Baseline creatinine normal. Non- oliguric. Electrolytes acceptable. No emergent need for [employer]. CPK 600. CT scan did not demonstrate obstruction. Kidneys were normal in a ppearance. UA/microscopy will be updated within 24 hours. Agree with vasopressor support to maintain MAP >60. Medications are appropriately dosed for kidney function including Zosyn. Maintain Solorzano to gravity. Document I/O's. Repeat metabolic profile tomorrow AM. If kidney function declines requiring dialysis, I would have concerns about her ability to tolerate IHD and we may need to consider transfer to a facility that is able to provide CRRT/PIRRT. (2) Perforated abdominal viscus: POD #1 s/p laparotomy w/ sigmoid resection. Abdomen open. (3) Metabolic acidosis: Hemodynamic support and routine monitor of lactic acid levels. (4) Pulmonary embolism: Management per primary team. (5) Sepsis: Remains on Zosyn and caspofungin. (6) Cardiac arrest: POD#1 s/p. Remains hypotensive and hemodynamically unstable. Follow up TTE reviewed. (7) Admitted to intensive care unit: 35 minutes of critical care time provided today. History of Present Illness Reason for Consultation: Acute kidney injury Requesting Physician: Dr. August Dowell Attending Physician: Chadwick Gonzalez MD, [facility] History of Present Illness Ivet Cannon is a 59-year-old female smoker with a history of hyperlipidemia and hypertension. The patient was admitted to [facility] with sepsis related to a perforated viscus. She is POD#1 s/p laparatomy with abdominal washout, sigmoid resection and colostomy. Post admission, prior to being taken emergently to the operating room, the patient suffered a witnessed cardiac arrest. Ivet was recently treated for diverticulitis at [facility]. Nephrology consultation was requested for evaluation and management of acute renal injury in a critically ill patient. She was seen and evaluated in the ICU this morning. Plan of care was discussed with Dr. Marin. Baseline creatinine based on records from [facility] is 0.77 mg/dL. Serum creatinine was 3.72 mg/dL on admission. Creatinine is 2.3 mg/dL today. Ivet remains hypotensive requiring notable vasopressor and inotropic support. She is awake and following basic commands. She remains mechanically ventilated on an FIO2 of 40%. She is non-oliguric. Fevers have defervesced. Ivet has been hypothermic. CTA demonstrated small scattered PE bilaterally. CT angio of the abdomen demonstrated findings consistent with hypoperfusion syndrome. Fibrinogen is slightly elevated but INR also elevated as well as D-dimer. Unclear is a low level DIC could be present but thankfully there has not been significant thrombocytopenia or MAHA. Blood counts have been relatively stable with persistent leukopenia. Lactate is improving but remains elevated. Ivet has been non-olguric. Nephrology consultation was requested to assist in management given the patient's critical condition and impaired kidney function. Allergies Allergy/AdvReac Type Severity Reaction Status Date / Time Penicillins Allergy Unknown Verified 09/09/19 16:42 Home Medications Home Medications Medication Instructions Recorded Confirmed Type atorvastatin [Lipitor] 20 mg PO DAILY 09/09/19 09/09/19 History benazepril 5 mg PO DAILY 09/09/19 09/09/19 History diclofenac sodium [Voltaren] 2 g TOPICAL BID 09/09/19 09/09/19 History sulindac 150 mg PO BID 09/09/19 09/09/19 History Patient History Medical History Cardiac arrest (Acute) Dyslipidemia Hypertension Obesity Perforated diverticulum Sepsis (Acute) Smoker Surgical History No pertinent past surgical history Family History Other No pertinent family history in first degree relatives Social History Preferred Language: Dutch Communication Ability: intubated Beliefs That Will Affect Care: None Current Living Situation: Spouse Other Information That Helps Us Care for You: No Feels Safe at Home: Yes Smoking Status: Current some day smoker Hx Alcohol Use: No Hx Substance Use: No Review of Systems Review of Systems: Unobtainable due to endotracheal tube Physical Exam Constitutional: + ill appearing and + obese; no acute distress Eyes: + anicteric sclerae; no corneal abnormality ENMT: ETT Neck: normal visual inspection and trachea midline Respiratory: Auscultation: + bronchial breath sounds mechanically ventilated Cardiovascular: Rate/Rhythm: + tachycardic Heart Sounds: normal S1 and normal S2 Vessels: no JVD Extremities: normal capillary refill; no edema Gastrointestinal (Abdomen): Percussion/Palpation: abdomen soft open abdomen packed, ostomy patent and pink, abd distended Musculoskeletal: Extremities: + petechiae; no cyanosis and no clubbing Skin: no lesions and no jaundice Neurologic: moves all extremities and awake Genitourinary: urine clear yellow Results & Data Vital Signs (Past 12 Hours) Vital Signs Pulse Resp Pulse Ox 09/10/19 10:41 102 H 20 95 09/10/19 09:30 105 H 94 09/10/19 09:19 104 H 94 09/10/19 09:01 105 H 94 09/10/19 08:30 104 H 93 09/10/19 08:00 108 H 94 09/10/19 07:52 108 H 24 95 09/10/19 07:30 103 H 95 09/10/19 07:19 103 H 96 09/10/19 07:00 103 H 96 09/10/19 05:58 107 H 24 95 09/10/19 05:00 107 H 94 09/10/19 04:30 106 H 95 09/10/19 04:00 109 H 94 09/10/19 03:30 110 H 94 09/10/19 03:00 109 H 95 09/10/19 02:30 111 H 97 09/10/19 02:16 112 H 97 09/10/19 02:11 113 H 97 09/10/19 02:06 113 H 97 09/10/19 02:01 115 H 97 09/10/19 02:00 114 H 09/10/19 01:56 115 H 98 09/10/19 01:46 118 H 97 09/10/19 01:41 119 H 09/10/19 01:36 117 H 24 98 09/10/19 01:30 116 H 09/10/19 01:27 116 H 09/10/19 01:21 117 H 09/10/19 01:11 116 H 09/10/19 01:06 116 H 09/10/19 01:01 115 H 09/10/19 01:00 117 H 97 09/10/19 00:51 115 H 09/10/19 00:41 114 H 09/10/19 00:31 114 H 09/10/19 00:30 114 H 09/10/19 00:16 114 H 09/10/19 00:06 112 H 09/10/19 00:01 112 H 09/10/19 00:00 112 H 98 09/09/19 23:51 110 H 09/09/19 23:46 111 H 09/09/19 23:41 111 H Laboratory Results Laboratory Results - last 24 hr 09/09/19 09/09/19 09/09/19 14:31 14:31 14:31 WBC 6.34 RBC 5.39 Hgb 15.9 POC Hgb Hct 48.1 H POC Hct MCV 89.2 MCH 29.5 MCHC 33.1 RDW Std Deviation 51.3 H RDW Coeff of Allan 15.7 H Plt Count 322 MPV 11.2 H Immature Gran % (Auto) 1.3 Neut % (Auto) 76.2 Lymph % (Auto) 18.0 Villalba % (Auto) 4.3 Eos % (Auto) 0.0 Baso % (Auto) 0.2 Immature Gran # (Auto) 0.08 H Neut # (Auto) 4.84 Lymph # (Auto) 1.14 L Villalba # (Auto) 0.27 Eos # (Auto) 0.00 Baso # (Auto) 0.01 Neutrophils % (Manual) Lymphocytes % (Manual) Monocytes % (Manual) Eosinophils % (Manual) Metamyelocytes % (Man) Myelocytes % (Man) Neutrophils # (Manual) Total Absolute Neuts Lymphocytes # (Manual) Monocytes # (Manual) Eosinophils # (Manual) Metamyelocytes # (Man) Myelocytes # (Manual) Toxic Vacuolation Giant Platelets Polychromasia Echinocytes PT 13.0 H INR 1.3 H APTT 29.1 PTT Ratio 1.1 Fibrinogen Fibrin Degrad Products D-Dimer 75943 H* Sample Site POC pH POC pCO2 POC pO2 POC HCO3 POC Total CO2 POC Base Excess ABG pH ABG pH (Temp Correct) ABG pCO2 ABG pCO2 (Temp Corrct ABG pO2 POC ABG pO2 at Pt Temp ABG HCO3 ABG O2 Saturation ABG Base Excess Alec Test Barometric Pressure Oxygen Given O2 Delivery Device POC O2 Rate Minute Ventilation POC FiO2 Tidal Volume PEEP POC Sodium Sodium 142 POC Potassium Potassium 4.2 Chloride 108 H Carbon Dioxide 17 L Anion Gap 17.0 H BUN 32 H Creatinine 3.12 H Est Cr Clr Drug Dosing 22.2 Est GFR ( Amer) 18.3 Est GFR (Non-Af Amer) 15.8 BUN/Creatinine Ratio 10.2 Glucose 98 POC Glucose (other) Estimat Average Glucose Hemoglobin A1c Lactate Calcium 10.4 H Ionized Calcium Phosphorus Magnesium Total Bilirubin 0.7 AST 62 H ALT 41 Alkaline Phosphatase 89 Total Creatine Kinase 608 H CK-MB (CK-2) 24.5 H CK/CKMB % Calc 4.0 H Troponin I < 0.015 Total Protein 6.8 Albumin 3.0 L Globulin 3.8 Albumin/Globulin Ratio 0.8 L Lipase 68 L TSH Random Cortisol Specimen Hemolysis Nasal Screen MRSA (PCR) Hepatitis C Ab Screen Blood Type Antibody Screen 09/09/19 09/09/19 09/09/19 15:49 15:49 16:19 WBC RBC Hgb POC Hgb Hct POC Hct MCV MCH MCHC RDW Std Deviation RDW Coeff of Allan Plt Count MPV Immature Gran % (Auto) Neut % (Auto) Lymph % (Auto) Villalba % (Auto) Eos % (Auto) Baso % (Auto) Immature Gran # (Auto) Neut # (Auto) Lymph # (Auto) Villalba # (Auto) Eos # (Auto) Baso # (Auto) Neutrophils % (Manual) Lymphocytes % (Manual) Monocytes % (Manual) Eosinophils % (Manual) Metamyelocytes % (Man) Myelocytes % (Man) Neutrophils # (Manual) Total Absolute Neuts Lymphocytes # (Manual) Monocytes # (Manual) Eosinophils # (Manual) Metamyelocytes # (Man) Myelocytes # (Manual) Toxic Vacuolation Giant Platelets Polychromasia Echinocytes PT INR APTT PTT Ratio Fibrinogen Fibrin Degrad Products D-Dimer Sample Site POC pH POC pCO2 POC pO2 POC HCO3 POC Total CO2 POC Base Excess ABG pH 7.12 L* ABG pH (Temp Correct) ABG pCO2 42 ABG pCO2 (Temp Corrct ABG pO2 86 POC ABG pO2 at Pt Temp ABG HCO3 13 L ABG O2 Saturation 95.1 H ABG Base Excess -15.3 L Alec Test Barometric Pressure 726.4 Oxygen Given 15L O2 NRB O2 Delivery Device POC O2 Rate Minute Ventilation POC FiO2 Tidal Volume PEEP POC Sodium Sodium POC Potassium Potassium Chloride Carbon Dioxide Anion Gap BUN Creatinine Est Cr Clr Drug Dosing Est GFR ( Amer) Est GFR (Non-Af Amer) BUN/Creatinine Ratio Glucose POC Glucose (other) Estimat Average Glucose Hemoglobin A1c Lactate 7.4 H* Calcium Ionized Calcium Phosphorus Magnesium Total Bilirubin AST ALT Alkaline Phosphatase Total Creatine Kinase CK-MB (CK-2) CK/CKMB % Calc Troponin I Total Protein Albumin Globulin Albumin/Globulin Ratio Lipase TSH Random Cortisol Specimen Hemolysis Nasal Screen MRSA (PCR) Hepatitis C Ab Screen Blood Type A Negative Antibody Screen NEGATIVE 09/09/19 09/09/19 09/09/19 16:36 17:29 17:45 WBC RBC Hgb POC Hgb 10.5 L Hct POC Hct 31 L MCV MCH MCHC RDW Std Deviation RDW Coeff of Allan Plt Count MPV Immature Gran % (Auto) Neut % (Auto) Lymph % (Auto) Villalba % (Auto) Eos % (Auto) Baso % (Auto) Immature Gran # (Auto) Neut # (Auto) Lymph # (Auto) Villalba # (Auto) Eos # (Auto) Baso # (Auto) Neutrophils % (Manual) Lymphocytes % (Manual) Monocytes % (Manual) Eosinophils % (Manual) Metamyelocytes % (Man) Myelocytes % (Man) Neutrophils # (Manual) Total Absolute Neuts Lymphocytes # (Manual) Monocytes # (Manual) Eosinophils # (Manual) Metamyelocytes # (Man) Myelocytes # (Manual) Toxic Vacuolation Giant Platelets Polychromasia Echinocytes PT 14.4 H INR 1.4 H APTT 35.3 H PTT Ratio 1.3 Fibrinogen 438 H Fibrin Degrad Products D-Dimer Sample Site POC pH 7.12 L* POC pCO2 54 H POC pO2 98 H POC HCO3 18 L POC Total CO2 19 L POC Base Excess -12.0 L ABG pH ABG pH (Temp Correct) ABG pCO2 ABG pCO2 (Temp Corrct ABG pO2 POC ABG pO2 at Pt Temp ABG HCO3 ABG O2 Saturation ABG Base Excess Alec Test Barometric Pressure Oxygen Given O2 Delivery Device POC O2 Rate Minute Ventilation POC FiO2 Tidal Volume PEEP POC Sodium 144 Sodium POC Potassium 3.2 L Potassium Chloride Carbon Dioxide Anion Gap BUN Creatinine Est Cr Clr Drug Dosing Est GFR ( Amer) Est GFR (Non-Af Amer) BUN/Creatinine Ratio Glucose POC Glucose (other) Estimat Average Glucose Hemoglobin A1c Lactate 5.4 H* Calcium Ionized Calcium Phosphorus Magnesium Total Bilirubin AST ALT Alkaline Phosphatase Total Creatine Kinase CK-MB (CK-2) CK/CKMB % Calc Troponin I Total Protein Albumin Globulin Albumin/Globulin Ratio Lipase TSH Random Cortisol Specimen Hemolysis Nasal Screen MRSA (PCR) Hepatitis C Ab Screen Blood Type Antibody Screen 09/09/19 09/09/19 09/09/19 17:45 18:10 19:53 WBC 2.51 L RBC 4.17 L Hgb 11.8 L D POC Hgb 10.5 L Hct 36.1 L POC Hct 31 L MCV 86.6 MCH 28.3 MCHC 32.7 RDW Std Deviation 49.6 H RDW Coeff of Allan 15.5 H Plt Count 167 MPV 10.1 Immature Gran % (Auto) 1.7 Neut % (Auto) 66.1 Lymph % (Auto) 28.4 Villalba % (Auto) 3.8 Eos % (Auto) 0.0 Baso % (Auto) 0.0 Immature Gran # (Auto) 0.04 H Neut # (Auto) 1.56 Lymph # (Auto) 0.67 L Villalba # (Auto) 0.09 L Eos # (Auto) 0.00 Baso # (Auto) 0.00 Neutrophils % (Manual) Lymphocytes % (Manual) Monocytes % (Manual) Eosinophils % (Manual) Metamyelocytes % (Man) Myelocytes % (Man) Neutrophils # (Manual) Total Absolute Neuts Lymphocytes # (Manual) Monocytes # (Manual) Eosinophils # (Manual) Metamyelocytes # (Man) Myelocytes # (Manual) Toxic Vacuolation 1+ Giant Platelets 1+ Polychromasia 1+ Echinocytes 1+ PT INR APTT PTT Ratio Fibrinogen Fibrin Degrad Products >40 H D-Dimer Sample Site POC pH 7.25 L POC pCO2 41 POC pO2 88 POC HCO3 18 L POC Total CO2 19 L POC Base Excess -9.0 ABG pH ABG pH (Temp Correct) ABG pCO2 ABG pCO2 (Temp Corrct ABG pO2 POC ABG pO2 at Pt Temp ABG HCO3 ABG O2 Saturation ABG Base Excess Alec Test Barometric Pressure Oxygen Given O2 Delivery Device POC O2 Rate Minute Ventilation POC FiO2 Tidal Volume PEEP POC Sodium 144 Sodium POC Potassium 3.3 Potassium Chloride Carbon Dioxide Anion Gap BUN Creatinine Est Cr Clr Drug Dosing Est GFR ( Amer) Est GFR (Non-Af Amer) BUN/Creatinine Ratio Glucose POC Glucose (other) Estimat Average Glucose Hemoglobin A1c Lactate Calcium Ionized Calcium Phosphorus Magnesium Total Bilirubin AST ALT Alkaline Phosphatase Total Creatine Kinase CK-MB (CK-2) CK/CKMB % Calc Troponin I Total Protein Albumin Globulin Albumin/Globulin Ratio Lipase TSH Random Cortisol Specimen Hemolysis Nasal Screen MRSA (PCR) Hepatitis C Ab Screen Blood Type Antibody Screen 09/09/19 09/09/19 09/09/19 19:53 19:53 19:53 WBC RBC Hgb POC Hgb Hct POC Hct MCV MCH MCHC RDW Std Deviation RDW Coeff of Allan Plt Count MPV Immature Gran % (Auto) Neut % (Auto) Lymph % (Auto) Villalba % (Auto) Eos % (Auto) Baso % (Auto) Immature Gran # (Auto) Neut # (Auto) Lymph # (Auto) Villalba # (Auto) Eos # (Auto) Baso # (Auto) Neutrophils % (Manual) Lymphocytes % (Manual) Monocytes % (Manual) Eosinophils % (Manual) Metamyelocytes % (Man) Myelocytes % (Man) Neutrophils # (Manual) Total Absolute Neuts Lymphocytes # (Manual) Monocytes # (Manual) Eosinophils # (Manual) Metamyelocytes # (Man) Myelocytes # (Manual) Toxic Vacuolation Giant Platelets Polychromasia Echinocytes PT 16.5 H INR 1.7 H APTT 41.0 H PTT Ratio 1.5 Fibrinogen Fibrin Degrad Products D-Dimer Sample Site POC pH POC pCO2 POC pO2 POC HCO3 POC Total CO2 POC Base Excess ABG pH ABG pH (Temp Correct) ABG pCO2 ABG pCO2 (Temp Corrct ABG pO2 POC ABG pO2 at Pt Temp ABG HCO3 ABG O2 Saturation ABG Base Excess Alec Test Barometric Pressure Oxygen Given O2 Delivery Device POC O2 Rate Minute Ventilation POC FiO2 Tidal Volume PEEP POC Sodium Sodium 147 H POC Potassium Potassium 3.7 Chloride 116 H Carbon Dioxide 21 Anion Gap 10.0 BUN 33 H Creatinine 2.00 H D Est Cr Clr Drug Dosing 34.6 Est GFR ( Amer) 31.3 Est GFR (Non-Af Amer) 27.0 BUN/Creatinine Ratio 16.5 Glucose 115 H POC Glucose (other) Estimat Average Glucose Hemoglobin A1c Lactate 7.4 H* Calcium 8.2 L D Ionized Calcium Phosphorus Magnesium Total Bilirubin AST ALT Alkaline Phosphatase Total Creatine Kinase CK-MB (CK-2) CK/CKMB % Calc Troponin I Total Protein Albumin Globulin Albumin/Globulin Ratio Lipase TSH Random Cortisol Specimen Hemolysis Nasal Screen MRSA (PCR) Hepatitis C Ab Screen Blood Type Antibody Screen 02/13/20 02/13/20 02/13/20 21:21 21:21 21:21 WBC RBC Hgb POC Hgb Hct POC Hct MCV MCH MCHC RDW Std Deviation RDW Coeff of Allan Plt Count MPV Immature Gran % (Auto) Neut % (Auto) Lymph % (Auto) Villalba % (Auto) Eos % (Auto) Baso % (Auto) Immature Gran # (Auto) Neut # (Auto) Lymph # (Auto) Villalba # (Auto) Eos # (Auto) Baso # (Auto) Neutrophils % (Manual) Lymphocytes % (Manual) Monocytes % (Manual) Eosinophils % (Manual) Metamyelocytes % (Man) Myelocytes % (Man) Neutrophils # (Manual) Total Absolute Neuts Lymphocytes # (Manual) Monocytes # (Manual) Eosinophils # (Manual) Metamyelocytes # (Man) Myelocytes # (Manual) Toxic Vacuolation Giant Platelets Polychromasia Echinocytes PT 16.1 H INR 1.6 H APTT 38.3 H PTT Ratio 1.4 Fibrinogen Fibrin Degrad Products D-Dimer Sample Site POC pH POC pCO2 POC pO2 POC HCO3 POC Total CO2 POC Base Excess ABG pH ABG pH (Temp Correct) ABG pCO2 ABG pCO2 (Temp Corrct ABG pO2 POC ABG pO2 at Pt Temp ABG HCO3 ABG O2 Saturation ABG Base Excess Alec Test Barometric Pressure Oxygen Given O2 Delivery Device POC O2 Rate Minute Ventilation POC FiO2 Tidal Volume PEEP POC Sodium Sodium 144 POC Potassium Potassium 3.9 Chloride 116 H Carbon Dioxide 18 L Anion Gap 10.0 BUN 35 H Creatinine 2.05 H Est Cr Clr Drug Dosing 33.8 Est GFR ( Amer) 30.4 Est GFR (Non-Af Amer) 26.2 BUN/Creatinine Ratio 17.0 Glucose 152 H POC Glucose (other) Estimat Average Glucose Hemoglobin A1c Lactate 6.0 H* Calcium 8.4 L Ionized Calcium Phosphorus 3.9 Magnesium 4.4 H Total Bilirubin AST ALT Alkaline Phosphatase Total Creatine Kinase CK-MB (CK-2) CK/CKMB % Calc Troponin I Total Protein Albumin Globulin Albumin/Globulin Ratio Lipase TSH Random Cortisol Specimen Hemolysis Nasal Screen MRSA (PCR) Hepatitis C Ab Screen Blood Type Antibody Screen 09/09/19 09/09/19 09/09/19 21:21 21:21 Unknown WBC RBC Hgb POC Hgb Hct POC Hct MCV MCH MCHC RDW Std Deviation RDW Coeff of Allan Plt Count MPV Immature Gran % (Auto) Neut % (Auto) Lymph % (Auto) Villalba % (Auto) Eos % (Auto) Baso % (Auto) Immature Gran # (Auto) Neut # (Auto) Lymph # (Auto) Villalba # (Auto) Eos # (Auto) Baso # (Auto) Neutrophils % (Manual) Lymphocytes % (Manual) Monocytes % (Manual) Eosinophils % (Manual) Metamyelocytes % (Man) Myelocytes % (Man) Neutrophils # (Manual) Total Absolute Neuts Lymphocytes # (Manual) Monocytes # (Manual) Eosinophils # (Manual) Metamyelocytes # (Man) Myelocytes # (Manual) Toxic Vacuolation Giant Platelets Polychromasia Echinocytes PT INR APTT PTT Ratio Fibrinogen Fibrin Degrad Products D-Dimer Sample Site POC pH POC pCO2 POC pO2 POC HCO3 POC Total CO2 POC Base Excess ABG pH 7.34 L ABG pH (Temp Correct) ABG pCO2 32 L ABG pCO2 (Temp Corrct ABG pO2 63 L POC ABG pO2 at Pt Temp ABG HCO3 17 L ABG O2 Saturation 91.9 ABG Base Excess -7.9 Alec Test Pos Barometric Pressure 730.7 Oxygen Given 15L VENT O2 Delivery Device POC O2 Rate Minute Ventilation POC FiO2 Tidal Volume PEEP POC Sodium Sodium POC Potassium Potassium Chloride Carbon Dioxide Anion Gap BUN Creatinine Est Cr Clr Drug Dosing Est GFR ( Amer) Est GFR (Non-Af Amer) BUN/Creatinine Ratio Glucose POC Glucose (other) Estimat Average Glucose Hemoglobin A1c Lactate Calcium Ionized Calcium Phosphorus Magnesium Total Bilirubin AST ALT Alkaline Phosphatase Total Creatine Kinase CK-MB (CK-2) CK/CKMB % Calc Troponin I Total Protein Albumin Globulin Albumin/Globulin Ratio Lipase TSH Random Cortisol 40.90 Specimen Hemolysis Nasal Screen MRSA (PCR) Negative Hepatitis C Ab Screen Neg Blood Type Antibody Screen 09/10/19 09/10/19 09/10/19 01:04 01:05 01:05 WBC RBC Hgb 12.1 POC Hgb 11.2 L Hct 36.2 L POC Hct 33 L MCV MCH MCHC RDW Std Deviation RDW Coeff of Allan Plt Count MPV Immature Gran % (Auto) Neut % (Auto) Lymph % (Auto) Villalba % (Auto) Eos % (Auto) Baso % (Auto) Immature Gran # (Auto) Neut # (Auto) Lymph # (Auto) Villalba # (Auto) Eos # (Auto) Baso # (Auto) Neutrophils % (Manual) Lymphocytes % (Manual) Monocytes % (Manual) Eosinophils % (Manual) Metamyelocytes % (Man) Myelocytes % (Man) Neutrophils # (Manual) Total Absolute Neuts Lymphocytes # (Manual) Monocytes # (Manual) Eosinophils # (Manual) Metamyelocytes # (Man) Myelocytes # (Manual) Toxic Vacuolation Giant Platelets Polychromasia Echinocytes PT INR APTT PTT Ratio Fibrinogen Fibrin Degrad Products D-Dimer Sample Site Art Line POC pH 7.40 POC pCO2 33 L POC pO2 80 POC HCO3 20 POC Total CO2 21 L POC Base Excess -4.0 ABG pH ABG pH (Temp Correct) 7.385 ABG pCO2 ABG pCO2 (Temp Corrct 35 ABG pO2 POC ABG pO2 at Pt Temp 86 ABG HCO3 ABG O2 Saturation ABG Base Excess Alec Test NA Barometric Pressure Oxygen Given O2 Delivery Device Ventilator POC O2 Rate 24 Minute Ventilation 11.3 POC FiO2 100 Tidal Volume 500 PEEP 7 POC Sodium 141 Sodium POC Potassium 4.1 Potassium Chloride Carbon Dioxide Anion Gap BUN Creatinine Est Cr Clr Drug Dosing Est GFR ( Amer) Est GFR (Non-Af Amer) BUN/Creatinine Ratio Glucose POC Glucose (other) Estimat Average Glucose Hemoglobin A1c Lactate 5.6 H* Calcium Ionized Calcium Phosphorus Magnesium Total Bilirubin AST ALT Alkaline Phosphatase Total Creatine Kinase CK-MB (CK-2) CK/CKMB % Calc Troponin I Total Protein Albumin Globulin Albumin/Globulin Ratio Lipase TSH Random Cortisol Specimen Hemolysis Nasal Screen MRSA (PCR) Hepatitis C Ab Screen Blood Type Antibody Screen 09/10/19 09/10/19 09/10/19 01:05 01:15 04:02 WBC RBC Hgb POC Hgb Hct POC Hct MCV MCH MCHC RDW Std Deviation RDW Coeff of Allan Plt Count MPV Immature Gran % (Auto) Neut % (Auto) Lymph % (Auto) Villalba % (Auto) Eos % (Auto) Baso % (Auto) Immature Gran # (Auto) Neut # (Auto) Lymph # (Auto) Villalba # (Auto) Eos # (Auto) Baso # (Auto) Neutrophils % (Manual) Lymphocytes % (Manual) Monocytes % (Manual) Eosinophils % (Manual) Metamyelocytes % (Man) Myelocytes % (Man) Neutrophils # (Manual) Total Absolute Neuts Lymphocytes # (Manual) Monocytes # (Manual) Eosinophils # (Manual) Metamyelocytes # (Man) Myelocytes # (Manual) Toxic Vacuolation Giant Platelets Polychromasia Echinocytes PT 16.5 H INR 1.7 H APTT 45.8 H* 46.3 H* PTT Ratio 1.7 1.7 Fibrinogen Fibrin Degrad Products D-Dimer Sample Site POC pH POC pCO2 POC pO2 POC HCO3 POC Total CO2 POC Base Excess ABG pH ABG pH (Temp Correct) ABG pCO2 ABG pCO2 (Temp Corrct ABG pO2 POC ABG pO2 at Pt Temp ABG HCO3 ABG O2 Saturation ABG Base Excess Alec Test Barometric Pressure Oxygen Given O2 Delivery Device POC O2 Rate Minute Ventilation POC FiO2 Tidal Volume PEEP POC Sodium Sodium POC Potassium Potassium Chloride Carbon Dioxide Anion Gap BUN Creatinine Est Cr Clr Drug Dosing Est GFR ( Amer) Est GFR (Non-Af Amer) BUN/Creatinine Ratio Glucose POC Glucose (other) 155 H Estimat Average Glucose Hemoglobin A1c Lactate Calcium Ionized Calcium Phosphorus Magnesium Total Bilirubin AST ALT Alkaline Phosphatase Total Creatine Kinase CK-MB (CK-2) CK/CKMB % Calc Troponin I Total Protein Albumin Globulin Albumin/Globulin Ratio Lipase TSH Random Cortisol Specimen Hemolysis Nasal Screen MRSA (PCR) Hepatitis C Ab Screen Blood Type Antibody Screen 09/10/19 09/10/19 09/10/19 04:02 04:02 04:02 WBC RBC Hgb POC Hgb Hct POC Hct MCV MCH MCHC RDW Std Deviation RDW Coeff of Allan Plt Count MPV Immature Gran % (Auto) Neut % (Auto) Lymph % (Auto) Villalba % (Auto) Eos % (Auto) Baso % (Auto) Immature Gran # (Auto) Neut # (Auto) Lymph # (Auto) Villalba # (Auto) Eos # (Auto) Baso # (Auto) Neutrophils % (Manual) Lymphocytes % (Manual) Monocytes % (Manual) Eosinophils % (Manual) Metamyelocytes % (Man) Myelocytes % (Man) Neutrophils # (Manual) Total Absolute Neuts Lymphocytes # (Manual) Monocytes # (Manual) Eosinophils # (Manual) Metamyelocytes # (Man) Myelocytes # (Manual) Toxic Vacuolation Giant Platelets Polychromasia Echinocytes PT INR APTT PTT Ratio Fibrinogen Fibrin Degrad Products D-Dimer Sample Site POC pH POC pCO2 POC pO2 POC HCO3 POC Total CO2 POC Base Excess ABG pH 7.44 ABG pH (Temp Correct) ABG pCO2 30 L ABG pCO2 (Temp Corrct ABG pO2 68 L POC ABG pO2 at Pt Temp ABG HCO3 20 ABG O2 Saturation 94.0 ABG Base Excess -3.2 Alec Test Pos Barometric Pressure 735.5 Oxygen Given FIO2 90 O2 Delivery Device POC O2 Rate Minute Ventilation POC FiO2 Tidal Volume PEEP POC Sodium Sodium 142 POC Potassium Potassium 4.3 Chloride 112 H Carbon Dioxide 21 Anion Gap 9.0 BUN 36 H Creatinine 2.16 H Est Cr Clr Drug Dosing 32.0 Est GFR ( Amer) 28.5 Est GFR (Non-Af Amer) 24.6 BUN/Creatinine Ratio 16.8 Glucose 147 H POC Glucose (other) Estimat Average Glucose Hemoglobin A1c Lactate 5.1 H* Calcium 7.5 L Ionized Calcium Phosphorus Magnesium Total Bilirubin AST ALT Alkaline Phosphatase Total Creatine Kinase CK-MB (CK-2) CK/CKMB % Calc Troponin I Total Protein Albumin Globulin Albumin/Globulin Ratio Lipase TSH 0.999 Random Cortisol Specimen Hemolysis Nasal Screen MRSA (PCR) Hepatitis C Ab Screen Blood Type Antibody Screen 09/10/19 09/10/19 09/10/19 04:02 04:02 04:02 WBC 3.79 L RBC 4.22 Hgb 11.9 L POC Hgb Hct 35.2 L POC Hct MCV 83.4 MCH 28.2 MCHC 33.8 RDW Std Deviation 47.8 H RDW Coeff of Allan 15.5 H Plt Count 167 MPV 10.9 H Immature Gran % (Auto) Neut % (Auto) Lymph % (Auto) Villalba % (Auto) Eos % (Auto) Baso % (Auto) Immature Gran # (Auto) Neut # (Auto) Lymph # (Auto) Villalba # (Auto) Eos # (Auto) Baso # (Auto) Neutrophils % (Manual) 15.7 Lymphocytes % (Manual) 27.8 Monocytes % (Manual) 3.5 Eosinophils % (Manual) 0.9 Metamyelocytes % (Man) 47.8 Myelocytes % (Man) 4.3 Neutrophils # (Manual) 0.60 L Total Absolute Neuts 0.60 L* Lymphocytes # (Manual) 1.05 L Monocytes # (Manual) 0.13 Eosinophils # (Manual) 0.03 Metamyelocytes # (Man) 1.81 H Myelocytes # (Manual) 0.16 H Toxic Vacuolation Giant Platelets Polychromasia Echinocytes 2+ PT INR APTT PTT Ratio Fibrinogen Fibrin Degrad Products D-Dimer Sample Site POC pH POC pCO2 POC pO2 POC HCO3 POC Total CO2 POC Base Excess ABG pH ABG pH (Temp Correct) ABG pCO2 ABG pCO2 (Temp Corrct ABG pO2 POC ABG pO2 at Pt Temp ABG HCO3 ABG O2 Saturation ABG Base Excess Alec Test Barometric Pressure Oxygen Given O2 Delivery Device POC O2 Rate Minute Ventilation POC FiO2 Tidal Volume PEEP POC Sodium Sodium POC Potassium Potassium Chloride Carbon Dioxide Anion Gap BUN Creatinine Est Cr Clr Drug Dosing Est GFR ( Amer) Est GFR (Non-Af Amer) BUN/Creatinine Ratio Glucose POC Glucose (other) Estimat Average Glucose 126 Hemoglobin A1c 6.0 H Lactate Calcium Ionized Calcium 1.07 L Phosphorus Magnesium Total Bilirubin AST ALT Alkaline Phosphatase Total Creatine Kinase CK-MB (CK-2) CK/CKMB % Calc Troponin I Total Protein Albumin Globulin Albumin/Globulin Ratio Lipase TSH Random Cortisol Specimen Hemolysis Nasal Screen MRSA (PCR) Hepatitis C Ab Screen Blood Type Antibody Screen 09/10/19 09/10/19 09/10/19 08:00 08:00 08:00 WBC RBC Hgb POC Hgb Hct POC Hct MCV MCH MCHC RDW Std Deviation RDW Coeff of Allan Plt Count MPV Immature Gran % (Auto) Neut % (Auto) Lymph % (Auto) Villalba % (Auto) Eos % (Auto) Baso % (Auto) Immature Gran # (Auto) Neut # (Auto) Lymph # (Auto) Villalba # (Auto) Eos # (Auto) Baso # (Auto) Neutrophils % (Manual) Lymphocytes % (Manual) Monocytes % (Manual) Eosinophils % (Manual) Metamyelocytes % (Man) Myelocytes % (Man) Neutrophils # (Manual) Total Absolute Neuts Lymphocytes # (Manual) Monocytes # (Manual) Eosinophils # (Manual) Metamyelocytes # (Man) Myelocytes # (Manual) Toxic Vacuolation Giant Platelets Polychromasia Echinocytes PT 16.8 H INR 1.7 H APTT 46.4 H* PTT Ratio 1.7 Fibrinogen Fibrin Degrad Products D-Dimer Sample Site POC pH POC pCO2 POC pO2 POC HCO3 POC Total CO2 POC Base Excess ABG pH ABG pH (Temp Correct) ABG pCO2 ABG pCO2 (Temp Corrct ABG pO2 POC ABG pO2 at Pt Temp ABG HCO3 ABG O2 Saturation ABG Base Excess Alec Test Barometric Pressure Oxygen Given O2 Delivery Device POC O2 Rate Minute Ventilation POC FiO2 Tidal Volume PEEP POC Sodium Sodium 141 POC Potassium Potassium 4.6 Chloride 110 H Carbon Dioxide 21 Anion Gap 10.0 BUN 36 H Creatinine 2.21 H Est Cr Clr Drug Dosing 31.3 Est GFR ( Amer) 27.8 Est GFR (Non-Af Amer) 24.0 BUN/Creatinine Ratio 16.3 Glucose 117 H POC Glucose (other) Estimat Average Glucose Hemoglobin A1c Lactate 4.7 H* Calcium 8.1 L Ionized Calcium Phosphorus Magnesium Total Bilirubin AST ALT Alkaline Phosphatase Total Creatine Kinase CK-MB (CK-2) CK/CKMB % Calc Troponin I Total Protein Albumin Globulin Albumin/Globulin Ratio Lipase TSH Random Cortisol Specimen Hemolysis Nasal Screen MRSA (PCR) Hepatitis C Ab Screen Blood Type Antibody Screen PG Care Time/CCT Total # of Minutes Spent Total Time Spent with Patient: Total time spent is greater than 50% in coordination of care (as documented) at patient's floor/unit and/or counseling patient: Coding Level of Care Code 95103 Inpt Consult Level 5 Diagnoses Acute renal failure N17.9 Acute renal failure type: unspecified Perforated abdominal viscus R19.8 Metabolic acidosis E87.2 Pulmonary embolism I26.99 Sepsis A41.9 Cardiac arrest I46.9 Admitted to intensive care unit Z78.9 (1) Acute renal failure Acute renal failure type: unspecified Qualified Code(s): N17.9 - Acute kidney failure, unspecified
[2019-09-10 12:15] LABS: BUN Creatinine Ratio 16.3 (10-20); Calcium 8.2 mg/dl (8.5-10.1); Creatinine Clr Calc Pharmacy 29.6 ml/min; Est GFR (African American) 25.9; Est GFR (Non-African American) 22.4; Potassium 4.7 mmol/L (3.5-5.1)
[2019-09-10 13:00] LABS: INR 1.8 (0.9-1.1); Partial Thromboplastin Ratio 1.7; Prothrombin Time 17.3 Seconds (9.0-12.0)
[2019-09-10 13:07] LABS: Fibrinogen 701 mg/dl (184-400); Partial Thromboplastin Time 46.5 Seconds (21.0-31.0)
[2019-09-10] MEDS ORDERED: HEPARIN SOD 5,000 UNIT/0.5 ML VIAL SC SCH (14:00)
[2019-09-10] MEDS ORDERED: PIPERACILLIN/TAZOBACTAM 4.5 GM in DEXTROSE 5% 100 ML IV SCH (14:00)
--- NOTE | 2019-09-10 14:08 | Billing Data ---
Date of Service September 10, 2019 Coding Level of Care Code Critical Care ea addt'l 30 min
--- NOTE | 2019-09-10 14:08 | Wound Consultation ---
Date of Consultation September 10, 2019 Assessment & Plan (1) Surgical wound present: Patient with perforated sigmoid diverticulum status post sigmoid resection and colostomy. There is an AbThera wound VAC in place. Dr. Gonzalez plans to take patient to the OR on Friday to replace VAC. We will continue to follow along with the patient as she will likely need a traditional wound VAC and wound care as she stabilizes. Thank you for limited to spent in the care of this patient. Please hesitate to call with any questions. (2) Perforated abdominal viscus: History of Present Illness Reason for Consultation: Surgical wound Attending Physician: Chadwick Gonzalez MD, [facility] History of Present Illness This is a 59-year-old female with a past medical history of hypertension tobacco use and obesity who was recently discharged from [place] with diverticulitis on oral antibiotics. Patient was admitted with a perforated diverticulum and underwent sigmoid resection and colonoscopy. In the OR she went into cardiac arrest and ACLS was initiated. Patient was resuscitated. She is currently intubated. Status post surgery with abdominal wound was left open with abthera open abdomen negative pressure device in place. Patient will eventually need regular wound vac and wound care. Allergies Allergy/AdvReac Type Severity Reaction Status Date / Time Penicillins Allergy Unknown Verified 09/09/19 16:42 Home Medications Home Medications Medication Instructions Recorded Confirmed Type atorvastatin [Lipitor] 20 mg PO DAILY 09/09/19 09/09/19 History benazepril 5 mg PO DAILY 09/09/19 09/09/19 History diclofenac sodium [Voltaren] 2 g TOPICAL BID 09/09/19 09/09/19 History sulindac 150 mg PO BID 09/09/19 09/09/19 History Patient History Medical History Cardiac arrest (Acute) Dyslipidemia Hypertension Obesity Perforated diverticulum Sepsis (Acute) Smoker Surgical History No pertinent past surgical history Family History Other No pertinent family history in first degree relatives Social History Preferred Language: Kiswahili Communication Ability: intubated Beliefs That Will Affect Care: None Current Living Situation: Spouse Other Information That Helps Us Care for You: No Feels Safe at Home: Yes Smoking Status: Current some day smoker Hx Alcohol Use: No Hx Substance Use: No Review of Systems Review of Systems: Unobtainable due to endotracheal tube Physical Exam Constitutional: Patient intubated Eyes: PERRL, conjunctivae normal, anicteric sclerae Respiratory: Patient is intubated, breath sounds symetric Cardiovascular: RRR, no murmur, no edema Gastrointestinal (Abdomen): open wound with wound vac. [address], colostomy on left side Skin: Wound measuring as recorded in nursing documentation. Abthera wound vac dressing is in place. Neurologic: awake Results & Data Vital Signs (Past 12 Hours) Vital Signs Pulse Resp Pulse Ox 09/10/19 12:00 102 H 96 09/10/19 11:30 102 H 93 09/10/19 10:41 102 H 20 95 09/10/19 10:30 103 H 94 09/10/19 10:20 112 H 94 09/10/19 10:00 104 H 94 09/10/19 09:30 105 H 94 09/10/19 09:19 104 H 94 09/10/19 09:01 105 H 94 09/10/19 08:30 104 H 93 09/10/19 08:00 108 H 94 09/10/19 07:52 108 H 24 95 09/10/19 07:30 103 H 95 09/10/19 07:19 103 H 96 09/10/19 07:00 103 H 96 09/10/19 05:58 107 H 24 95 09/10/19 05:00 107 H 94 09/10/19 04:30 106 H 95 09/10/19 04:00 109 H 94 09/10/19 03:30 110 H 94 09/10/19 03:00 109 H 95 09/10/19 02:30 111 H 97 09/10/19 02:16 112 H 97 09/10/19 02:11 113 H 97 PG Care Time/CCT Total # of Minutes Spent Total Time Spent with Patient: Total time spent is greater than 50% in coordination of care (as documented) at patient's floor/unit and/or counseling patient: Coding Level of Care Code 43759 Inpt Consult Level 2 Diagnoses Surgical wound present T14.8XXA Perforated abdominal viscus R19.8
--- NOTE | 2019-09-10 16:23 | Electrocardiogram Report ---
Test Reason : Blood Pressure : / mmHG Vent. Rate : 108 BPM Atrial Rate : 108 BPM P-R Int : 144 ms QRS Dur : 100 ms QT Int : 294 ms P-R-T Axes : 044 000 154 degrees QTc Int : 393 ms Sinus tachycardia Abnormal ECG No previous ECGs available Confirmed by Asher Bonilla ([id number]) on 09/10/2019 4:23:23 PM Referred By: REFERRED SELF Confirmed By:Asher Bonilla
--- NOTE | 2019-09-10 16:26 | XCELERA ---
[id number] [id number]
--- NOTE | 2019-09-10 16:30 | Communication Note ---
Date of Service: September 10, 2019 Mrs. Cannon is a 59 y/o female admitted due to perforated sigmoid colon requiring laparotomy with repair/colostomy/washout/drain and subsequently found to have small PEs. She initially presented to [place] and diagnosed with diverticulitis and started on antibiotics. Due to worsening abdominal pain and SOB she presented to our facility. Imaging supported a significant pneumoperitoneum and stool within the abdomen. She is S/P laparotomy on 09/09. Patient suffered a respiratory arrest and Code Blue called while in ED prior to surgical intervention. This is thought to be related to significant acidosis in the setting of sepsis but possibility of a mixed picture with cardiogenic causes. She has been intubated and on pressor support with continued soft pressures. ABGs are improving with ventilatory support. She was also found to have GABRIEL likely related to ischemic ATN. Cr initially improved but has since began to rise again. Lactic stabilizing around 4.7. In regards to her PEs, the initial plan was to initiate heparin 8 hours after surgical intervention however coag labs support a level of DIC. Ultimately, given worsening creatinine and BP limitations it was thought maybe CRRT may be beneficial. Due to inability to perform this at our facility she is being flown to [facility]. Hospitalist group was consulted for post-ICU care however will be leaving our facility. Discussed with Dr. Marin and Dr. Gonzalez. Did not perform a physical examination but did review chart and discussed with those involved. At current time her treatment is being managed by the ICU team and our services are not necessary at this time. During re-visit patient is getting prepared for transportation by helicopter.
[2019-09-10 17:44] VITALS: O2SAT 95
[2019-09-10 17:47] VITALS: BP 96/87; PULSE 127
[2019-09-11] MEDS ORDERED: CASPOFUNGIN 50 MG in SODIUM CHLORIDE 0.9% 250 ML IV SCH (11:00)
--- NOTE | 2019-09-13 14:10 | Discharge Summary (DS) ---
PRINCIPAL DIAGNOSIS: Perforated diverticulitis with feculent peritonitis and sepsis. OTHER DIAGNOSES: Respiratory failure, renal failure, cardiopulmonary arrest. HISTORY OF PRESENT ILLNESS: The patient is a 59-year-old female presenting to the Emergency Room 09/09/2019 via ambulance with severe abdominal pain and respiratory distress. It was apparent that the patient had a perforated viscus on CAT scan with free air, significant fluid, all felt to be secondary to perforated diverticulitis with diffuse peritonitis. She developed respiratory failure requiring intubation and subsequent cardiac arrest requiring CPR for which she did respond in the Emergency Room. At that point after being seen by the intensive care physician, anesthesiologist, ER physicians and myself, we proceeded to the operating room emergently. I found perforated diverticulitis with feces in the abdomen, diffuse feculent ascites. She had a large hole in her sigmoid colon. At that point, the sigmoid colon was resected. We gave her an end colostomy, abdominal washout, drainage and then I left her abdomen open using a large wound VAC. She was taken to the intensive care unit in critical condition. As a note she did have acute renal failure preoperatively, most likely from her sepsis which did persist. She was seen by the rebar bender and after significant discussion, it was felt that the patient would likely need dialysis. She was on pressors. She was respiratory dependent on the ventilator. It was felt that she should be transferred to tertiary care center and on 09/10/2019, she was transferred to the tertiary care center, which I believe was at [facility].
== END 2019-09-10 17:00 | disposition short-term general hospital (02) | DRG 853 ==
LOC: ED 14:53 → ASU 18:00 → 1E 19:57